=== PATIENT | female | born 1955 | race Caucasian/White ===

== ENCOUNTER 2020-05-22 10:35 | Inpatient (IN) | payer MEDICARE ==
[~2020-05-22] VITALS: Ht 157.5 cm; Wt 71.7 kg
[~2020-05-22 10:35] MED LIST: ALPR0.5T8 PO; DIAZ5TAB4 PO; FLUT1DIS27 IH; FLUT1DIS28 IH; GABA-532 PO; LORA1TAB PO; QUET50TA PO; RANI300T4 PO
--- NOTE | 2020-05-22 10:43 | NUR ---
Patient BIB [facility] from home for c/o SOB. Patient is A/Ox4. Speech is clear, speaks in complete sentences. No acute neuro deficits noted at this time. Respiratory even, symmetrical, but shallow. Patient tolerating room air at 94%. Denies any cp at this time. Deniese any n/v/d or any gu distress. Patient in bed at lowest position,, sr upx2, call light within reach. Fall precautions implemented per protocol.
[2020-05-22] MEDS ORDERED: SWABABLE VALVE TRANSFER SET EA MC ONE (10:55)
[2020-05-22] MEDS ORDERED: IV NORMAL SALINE 250 ML IV ONE (10:56)
[2020-05-22] MEDS ORDERED: IOHEXOL 350 100 ML INFUS..BTL ONE (10:56)
--- NOTE | 2020-05-22 10:58 | NUR ---
Blood sent, and solder technician at bedside for CXR.
[2020-05-22] MEDS ORDERED: OXYC-133 PO (11:13)
[2020-05-22] MEDS ORDERED: ACET-2154 PO (11:13)
[2020-05-22] MEDS ORDERED: HYDROMORPHONE 1 MG/1 ML DISP.SYRIN ONE ×2 (11:13→12:11)
[2020-05-22] MEDS ORDERED: HYDROMORPHONE 1 MG/1 ML DISP.SYRIN IV ONE ×2 (11:15→12:15)
[2020-05-22] MEDS ORDERED: IV NORMAL SALINE 500 ML BAG IV ONE (11:15)
[2020-05-22 11:18] LABS: CREATININE 0.9 mg/dL (0.6-1.3); POTASSIUM 3.9 mmol/L (3.5-5.1)
[2020-05-22 11:26] LABS: BASOPHILS # (AUTO) 0.1 K/uL (0.0-8.0); BASOPHILS % (AUTO) 0.7 % (0.0-2.0); EOSINOPHILS % (AUTO) 0.3 % (0.0-7.0); HEMATOCRIT 40.1 % (31.2-41.9); HEMOGLOBIN 13.1 g/dL (10.9-14.3); LYMPHOCYTES # (AUTO) 1.1 K/uL (20.0-40.0); LYMPHOCYTES % (AUTO) 10.4 % (20.5-51.5); MEAN CORPUSCULAR HEMOGLOBIN 28.6 uug (24.7-32.8); MEAN CORPUSCULAR HGB CONC 33 g/dL (32.3-35.6); MEAN CORPUSCULAR VOLUME 87.5 fL (75.5-95.3); MONOCYTES % (AUTO) 9.1 % (0.0-11.0); NEUTROPHILS # (AUTO) 8.4 K/uL (1.8-8.9); NEUTROPHILS % (AUTO) 79.5 % (38.5-71.5); PLATELET COUNT (AUTO) 394 K/uL (179-408); RED BLOOD CELL COUNT(AUTO) 4.59 MIL/uL (3.63-4.92); WHITE BLOOD COUNT (AUTO) 10.5 K/uL (3.8-11.8)
[2020-05-22] MEDS ORDERED: PIPERACILLIN/TAZOBACTAM/D5W 50 ML IV ONE (11:29)
[2020-05-22] MEDS ORDERED: VANCOMYCIN IV 200 ML ONE (11:29)
[2020-05-22] MEDS ORDERED: VANCOMYCIN IV 1,000 MG in IV DEXTROSE 5% 250 ML IV ONE (11:30)
[2020-05-22] MEDS ORDERED: PIPERACILLIN SODIUM/TAZOBACTAM 3.375 G in IV DEXTROSE 5% 50 ML IV ONE (11:30)
[2020-05-22 11:32] LABS: BILIRUBIN,TOTAL 0.5 mg/dL (0.2-1.0); TOTAL PROTEIN, SERUM 7.8 g/dL (6.4-8.2)
--- NOTE | 2020-05-22 11:33 | NUR ---
Patient transported to CT in stable condition.
[2020-05-22 12:31] LABS: ABG BASE EXCESS -4.8 mmol/L; ABG HCO3 21.2 mmol/L; ABG PCO2 42.8 mmHg (35.0-45.0); ABG PH 7.313 (7.350-7.450); ABG PO2 102.1 mmHg (75.0-100.0); ABG SITE LEFT RADIAL; ABG TOTAL HEMOGLOBIN 11.6 G/dL (12.0-16.0); MetHb 0.1 % (0.0-1.5); VENT MODE Nasal Cannula
--- NOTE | 2020-05-22 13:23 | NUR ---
Dr. Jacinto speaking with Dr. Deleon
[2020-05-22] MEDS ORDERED: LEVO50TA8 (13:38)
--- NOTE | 2020-05-22 13:39 | NUR ---
Report given to NATHEN Goldstein
--- NOTE | 2020-05-22 13:58 | NUR ---
Patient transported to TELE in stable condition.
[2020-05-22] MEDS ORDERED: Z GUARD REMEDY PASTE 57 GM TUBE TOP PRN (14:00)
[2020-05-22] MEDS ORDERED: MAGNESIUM HYDROXIDE 30 ML LIQUID UDC PO PRN (14:00)
[2020-05-22] MEDS ORDERED: FLUTICASONE/SALMETEROL 250/50 INHALER IH PRN (14:00)
[2020-05-22] MEDS ORDERED: ONDANSETRON 4 MG/2 ML VIAL IV PRN (14:00)
[2020-05-22] MEDS ORDERED: ACETAMINOPHEN 325 MG TABLET PO PRN (14:00)
[2020-05-22] MEDS ORDERED: ZOLPIDEM 5 MG TABLET PO PRN (14:00)
--- NOTE | 2020-05-22 14:03 | NUR ---
RECEIVED PATIENT FOR ADMISSION 65 YEARS OLD FEMALE BY MILLI TO ROOM 316 PLACED INTO BED FIXED AND MADE COMFORTABLE PATIENTY IS ALERT AND ORIENTED BUT WEAK ASSISTED WITH ANSWERING THE ADMISSION QUESTIONS ON O2 AT 2L/M BY NASAL CANULA WITH SOME SOBE WITH SATS AT 95 PERCENT VANCOMICIN IS INFUSING FROM EMERGENCY ROOM TO HER LEFT AC WITH NO S/S OF INFILTERATION ON SITE.OCCASSIONAL COUGH STATED UNABLE TO SPIT UP ORIENTED TO ROOM AND FACILITY PROTOCOL MADE COMFORTABLE WILL CONTINUE TO OBSERVE.
--- NOTE | 2020-05-22 14:30 | NUR ---
ABBIE WAS HERE FOR THE THORACENTHESIS BUT PATIENT WAS NOT READY SO SHE IS READY NOW SO I CALLED HIM AND SPOKE WITH HIM STATED WILL BE HERE SOON CONSCENT OBTAINED FROM THE PATIENT AND DOCUMENTED.
--- NOTE | 2020-05-22 14:35 | NUR ---
CALL RECEIVED FROM DR BRITO STATED TO START LOVENOX TOMORROW IF PATIENT WILL GET THORACENTHESIS TODAY PHARMACY NOTIFIED.
--- NOTE | 2020-05-22 14:44 | NUR ---
NATHEN Goldstein called to confirm consent signed and pt will be ready for thora at 15:15. Messaged DR Momin regarding thoracentesis. Waiting for reply.
[2020-05-22 14:57] VITALS: BP 140/85
[2020-05-22] MEDS ORDERED: ENOXAPARIN SODIUM 80 MG/0.8 ML DISP.SYRIN SQ SCH (16:00)
--- NOTE | 2020-05-22 16:30 | NUR ---
RIGHT LUNG THORACENTHESIS DONE AT THE BEDSIDE ORDERED AND 4000 ML REMOVED LIGHT BLOODY FLUID ALL SPECIMEN SENT TO THE LAB CXR DONE TO CONFIRM NO PNEUMOTHORAX PATIENT MADE COMFORTABLE STATED FEELING SOMEWHAT BETTER AT THIS TIME
[2020-05-22] MEDS: ALPRAZOLAM 0.5 MG TABLET PO SCH (16:37)
[2020-05-22] MEDS: OXYCODONE/APAP 5-325 MG TABLET PO PRN ×2 (16:39→21:00)
--- NOTE | 2020-05-22 17:18 | NUR ---
DR ESPOSITO HERE TO SEE PATIENT WITH NEW ORDERS FOR CYTOLOGY AND OTHER OTHERS FROM THE THORACENTHESIS FLUID.
[2020-05-22] MEDS ORDERED: ALBUTEROL SULFATE 8 GM HFA.AER.AD IH PRN (17:30)
[2020-05-22 20:05] VITALS: BP 138/84
[2020-05-22] MEDS: QUETIAPINE FUMARATE 100 MG TABLET PO SCH (21:00)
[2020-05-22] MEDS ORDERED: Medication Not On Formulary EA (Quetiapine Fumarate (Seroquel) 150 MG) PO SCH (21:00)
[2020-05-22] MEDS: GABAPENTIN 100 MG CAPSULE PO SCH (21:00)
--- NOTE | 2020-05-22 21:18 | NUR ---
patient received lying in bed ready to go to sleep. a/o x2-3. no s/s of acute distress. v/s stable. all medications administered. c/o of pain. percocet administered. safety precautions in placed. bed in lowest position, side rails up x2, bed alarm on. sinus tachycardia on tele monitor. on NC 2L. will continue to monitor and assess.
[2020-05-23] VITALS: BP 130/64
[2020-05-23] MEDS: OXYCODONE/APAP 5-325 MG TABLET PO PRN ×2 (03:30→20:19)
[2020-05-23 04:05] VITALS: BP 90/59
--- NOTE | 2020-05-23 05:09 | NUR ---
patient slept intermittently. no s/s of acute distress. v/s stable. NC 2L sat at 98%. PIV intact and patent. safety measures in place. fall precautions provided. will continue to monitor and assess.
[2020-05-23] MEDS: LEVOTHYROXINE SODIUM 50 MCG TABLET PO SCH (06:02)
[2020-05-23 06:32] VITALS: BP 104/69
[2020-05-23 06:49] LABS: BASOPHILS # (AUTO) 0.1 K/uL (0.0-8.0); BASOPHILS % (AUTO) 0.7 % (0.0-2.0); EOSINOPHILS # (AUTO) 0.1 K/uL (0.0-0.7); EOSINOPHILS % (AUTO) 1.2 % (0.0-7.0); HEMATOCRIT 33.9 % (31.2-41.9); HEMOGLOBIN 11.3 g/dL (10.9-14.3); LYMPHOCYTES # (AUTO) 1.2 K/uL (20.0-40.0); LYMPHOCYTES % (AUTO) 12.1 % (20.5-51.5); MEAN CORPUSCULAR HEMOGLOBIN 29.1 uug (24.7-32.8); MEAN CORPUSCULAR HGB CONC 33 g/dL (32.3-35.6); MEAN CORPUSCULAR VOLUME 87.4 fL (75.5-95.3); MONOCYTES # (AUTO) 1.1 K/uL (2.0-10.0); MONOCYTES % (AUTO) 11.2 % (0.0-11.0); NEUTROPHILS # (AUTO) 7.4 K/uL (1.8-8.9); NEUTROPHILS % (AUTO) 74.8 % (38.5-71.5); PLATELET COUNT (AUTO) 338 K/uL (179-408); RED BLOOD CELL COUNT(AUTO) 3.88 MIL/uL (3.63-4.92); WHITE BLOOD COUNT (AUTO) 9.9 K/uL (3.8-11.8)
[2020-05-23 07:03] LABS: CREATININE 0.8 mg/dL (0.6-1.3); PHOSPHOROUS 2.3 mg/dL (2.5-4.9); POTASSIUM 3.8 mmol/L (3.5-5.1)
[2020-05-23] MEDS: ALPRAZOLAM 0.5 MG TABLET PO SCH ×3 (08:43→17:38)
[2020-05-23] MEDS: ENOXAPARIN SODIUM 80 MG/0.8 ML DISP.SYRIN SQ SCH ×2 (08:44→20:19)
[2020-05-23] MEDS: FLUTICASONE/VILANTEROL 1 EACH BLST.W.DEV INH SCH (08:45)
[2020-05-23] MEDS ORDERED: FLUTICASONE/SALMETEROL 100/50 1 INH DISK.W.DEV IH SCH (09:00)
[2020-05-23] MEDS: HYDROCODONE/APAP 5-325MG TABLET PO PRN ×2 (10:43→15:04)
[2020-05-23] MEDS ORDERED: NEUTRA PHOS PACKET PO ONE (15:45)
[2020-05-23 16:56] LABS: *BLOOD, URINE 1+ (NEGATIVE); *CLARITY,URINE SLIGHTLY CLOUDY (CLEAR); *COLOR,URINE DARK YELLOW (YELLOW); *KETONES,URINE 2+ (NEGATIVE); LEUKOCYTE ESTERASE ,URINE NEGATIVE (NEGATIVE); NITRITE, URINE NEGATIVE (NEGATIVE); UGLUCOSE NEGATIVE (NEGATIVE)
[2020-05-23 16:59] LABS: *BILIRUBIN,URIN 1+ (NEGATIVE)
[2020-05-23 17:53] LABS: BACTERIA,URINE FEW /HPF (NONE SEEN); SQUAMOUS EPITHELIAL CELL,UR FEW /HPF (NONE SEEN)
[2020-05-23 17:54] LABS: RBC,URINE 0-3 /HPF (0-3)
--- NOTE | 2020-05-23 19:16 | NUR ---
PATIENT CALM AND COMFORTABLE THROUGH OUT SHIFT WITH NO SIGNS OF DISTRESS; PATIENT MEDICATION COMPLIANT;REPORT GIVEN TO ONCOMING NURSE.
--- NOTE | 2020-05-23 20:00 | NUR ---
Received patient awake and alert. Patient shows no signs or symptoms of distress at this time. Vital signs stable. Sinus Tach on tele monitor. Denies feeling any shortness of breath at this time. O2 saturation 96% on 2L NC. Complains of having 8/10 pain at this time. Will administer PRN pain medication. Side rails X2 are up. Bed set to lowest position. Call light within reach. Will continue to monitor patient.
[2020-05-23 20:09] VITALS: BP 112/57
[2020-05-23] MEDS: GABAPENTIN 100 MG CAPSULE PO SCH (20:19)
[2020-05-23] MEDS: QUETIAPINE FUMARATE 100 MG TABLET PO SCH (20:19)
--- NOTE | 2020-05-23 22:57 | NUR ---
Pt accidentally removed previous IV in left AC. New IV 22g placed on right hand. Patient shows no signs or symptoms of distress. Will continue to monitor patient.
[2020-05-24 00:05] VITALS: BP 105/60
[2020-05-24 04:09] VITALS: BP 104/59
[2020-05-24 06:39] LABS: BASOPHILS # (AUTO) 0.1 K/uL (0.0-8.0); BASOPHILS % (AUTO) 0.6 % (0.0-2.0); EOSINOPHILS # (AUTO) 0.1 K/uL (0.0-0.7); EOSINOPHILS % (AUTO) 0.7 % (0.0-7.0); HEMOGLOBIN 11.6 g/dL (10.9-14.3); LYMPHOCYTES # (AUTO) 0.9 K/uL (20.0-40.0); LYMPHOCYTES % (AUTO) 8.9 % (20.5-51.5); MEAN CORPUSCULAR HEMOGLOBIN 28.9 uug (24.7-32.8); MEAN CORPUSCULAR HGB CONC 33 g/dL (32.3-35.6); MEAN CORPUSCULAR VOLUME 87.1 fL (75.5-95.3); MONOCYTES % (AUTO) 9.3 % (0.0-11.0); NEUTROPHILS # (AUTO) 8.2 K/uL (1.8-8.9); NEUTROPHILS % (AUTO) 80.5 % (38.5-71.5); PLATELET COUNT (AUTO) 376 K/uL (179-408); RED BLOOD CELL COUNT(AUTO) 4.02 MIL/uL (3.63-4.92); WHITE BLOOD COUNT (AUTO) 10.2 K/uL (3.8-11.8)
[2020-05-24] MEDS: LEVOTHYROXINE SODIUM 50 MCG TABLET PO SCH (06:43)
--- NOTE | 2020-05-24 06:47 | NUR ---
Patient shows no signs or symptoms of distress at this time. Vital signs stable. ST on tele monitor. Patient to be endorsed to day shift nurse in stable condition.
[2020-05-24 06:51] LABS: CREATININE 0.8 mg/dL (0.6-1.3); PHOSPHOROUS 3.5 mg/dL (2.5-4.9); POTASSIUM 3.7 mmol/L (3.5-5.1)
--- NOTE | 2020-05-24 07:30 | NUR ---
Received pt in bed AOx4, stating she's feeling anxious. On RA, deep breathing noted, per patient d/t anxiety because of Hospice decision. Will give Xanax. DC plan for home with hospice. Dr. Ruiz ordered to DC Lovenox and order Eliquis 10mg PO. Bed locked in lowest position with siderails 2x up. Call light and belongings within reach.
[2020-05-24] MEDS ORDERED: APIX5TAB PO (07:38)
[2020-05-24 08:00] VITALS: BP 99/72
[2020-05-24] MEDS: ALPRAZOLAM 0.5 MG TABLET PO SCH (08:27)
[2020-05-24] MEDS: FLUTICASONE/VILANTEROL 1 EACH BLST.W.DEV INH SCH (08:29)
[2020-05-24] MEDS ORDERED: APIXABAN 5 MG TABLET PO ONE (08:30)
--- NOTE | 2020-05-24 09:20 | NUR ---
Pt left unit via wheelchair accompanied by nurse. DC forms and instructions signed and given, verbalized understanding. Pain med prescription also given to patient. Belongings list signed and all accounted for. IV on right hand and ID band removed. Hospice referrals given to patient as discussed by Dr. Ruiz. Pt picked up by via private car.
== END 2020-05-24 09:20 | disposition hospice, home (50) | DRG 175 ==
LOC: ER 10:35 → TELE3 13:37
PROVIDERS: ADMIT Family Medicine; ATTEND Family Medicine
PROC: 0W993ZZ Drainage of Right Pleural Cavity, Percutaneous Approach (ICD-10-PCS; principal; 2020-05-23)
DX: I26.99 Other pulmonary embolism without acute cor pulmonale (principal); J96.01 Acute respiratory failure with hypoxia; N17.0 Acute kidney failure with tubular necrosis; J91.0 Malignant pleural effusion; D68.69 Other thrombophilia; C78.2 Secondary malignant neoplasm of pleura; J98.19 Other pulmonary collapse; J98.11 Atelectasis; E44.0 Moderate protein-calorie malnutrition; C34.91 Malignant neoplasm of unspecified part of right bronchus or lung; R64 Cachexia; E03.9 Hypothyroidism, unspecified; E88.81 Metabolic syndrome and other insulin resistance; F17.210 Nicotine dependence, cigarettes, uncomplicated; Z92.21 Personal history of antineoplastic chemotherapy; Z92.3 Personal history of irradiation; J44.9 Chronic obstructive pulmonary disease, unspecified; E88.09 Other disorders of plasma-protein metabolism, not elsewhere classified; R73.9 Hyperglycemia, unspecified; E27.8 Other specified disorders of adrenal gland; E87.70 Fluid overload, unspecified; Z68.28 Body mass index [BMI] 28.0-28.9, adult
CPT/HCPCS: 32555; 36415; 36600; 70030-TC; 71045; 71275; 72125; 83605; 83735; 84100; 85025; 85730; 87040; 87070; 87205; 93005; A4663; G0378; J1170; J1650; J2543; J3370; J3535; J7040; J7050; Q9967; U0003-CS

== ENCOUNTER 2020-05-25 19:48 | Inpatient (IN) | payer MEDICARE ==
[~2020-05-25] VITALS: Ht 162.6 cm; Wt 69.9 kg
[~2020-05-25 19:48] MED LIST changes: +ACET-2154 PO; +APIX5TAB PO; -DIAZ5TAB4 PO; +ETOMIDATE 20 MG/10 ML VIAL IV ONE; +LEVO50TA8; -LORA1TAB PO; +OXYC-133 PO; -RANI300T4 PO; +SUCCINYLCHOLINE CHLORIDE 200 MG/10 ML VIAL IV ONE
--- NOTE | 2020-05-25 20:00 | NUR ---
Dr. Quinn at bedside for MSE.
--- NOTE | 2020-05-25 20:30 | NUR ---
Per patient's , patient has been abusing her percocet, took 7 tablets since last night. Patient's psychiatrist very concerned about her condition, Dr. Simpson, . Patient's oncologist is Dr. Sterling from the [facility] . made aware.
[2020-05-25 20:34] LABS: BASOPHILS # (AUTO) 0.1 K/uL (0.0-8.0); BASOPHILS % (AUTO) 0.2 % (0.0-2.0); HEMATOCRIT 34.8 % (31.2-41.9); HEMOGLOBIN 11.3 g/dL (10.9-14.3); LYMPHOCYTES # (AUTO) 1.2 K/uL (20.0-40.0); LYMPHOCYTES % (AUTO) 5.6 % (20.5-51.5); MEAN CORPUSCULAR HEMOGLOBIN 28.1 uug (24.7-32.8); MEAN CORPUSCULAR HGB CONC 33 g/dL (32.3-35.6); MEAN CORPUSCULAR VOLUME 86.2 fL (75.5-95.3); MONOCYTES % (AUTO) 9.1 % (0.0-11.0); NEUTROPHILS # (AUTO) 18.5 K/uL (1.8-8.9); NEUTROPHILS % (AUTO) 85.1 % (38.5-71.5); PLATELET COUNT (AUTO) 495 K/uL (179-408); RED BLOOD CELL COUNT(AUTO) 4.04 MIL/uL (3.63-4.92); WHITE BLOOD COUNT (AUTO) 21.8 K/uL (3.8-11.8)
--- NOTE | 2020-05-25 20:35 | NUR ---
Pt states she tested negative for covid 19 test 3-4 days ago.
[2020-05-25 20:40] LABS: ABG BASE EXCESS 3.6 mmol/L; ABG HCO3 27.4 mmol/L; ABG PCO2 38.1 mmHg (35.0-45.0); ABG PH 7.474 (7.350-7.450); ABG PO2 106.1 mmHg (75.0-100.0); ABG SITE LEFT RADIAL; ABG TOTAL HEMOGLOBIN 11.7 G/dL (12.0-16.0); COHb 1.1 % (0.5-1.5); MetHb 0.1 % (0.0-1.5); O2Hb 97.3 % (94.0-97.0); VENT MODE Nasal Cannula
[2020-05-25] MEDS ORDERED: ALBUTEROL SULFATE 2.5 MG/3 ML NEBU ONE ×2 (20:45→23:46)
[2020-05-25] MEDS ORDERED: IPRATROPIUM BROMIDE 0.5 MG/2.5 ML NEBU ONE ×2 (20:46→23:47)
[2020-05-25] MEDS ORDERED: ALPRAZOLAM 0.5 MG TABLET ONE (20:57)
[2020-05-25] MEDS ORDERED: ALBUTEROL SULFATE 2.5 MG/3 ML NEBU NEB ONE ×2 (21:00→23:45)
[2020-05-25] MEDS ORDERED: ALPRAZOLAM 0.25 MG TABLET PO ONE (21:00)
[2020-05-25] MEDS ORDERED: IPRATROPIUM BROMIDE 0.5 MG/2.5 ML NEBU NEB ONE ×2 (21:00→23:45)
[2020-05-25 21:02] LABS: BILIRUBIN,DIRECT 0.2 mg/dL (0.0-0.2); BILIRUBIN,TOTAL 0.6 mg/dL (0.2-1.0); CREATININE 0.8 mg/dL (0.6-1.3); POTASSIUM 3.6 mmol/L (3.5-5.1); TOTAL PROTEIN, SERUM 7.3 g/dL (6.4-8.2)
[2020-05-25] MEDS ORDERED: ACETAMINOPHEN ES 500 MG TABLET ONE (21:18)
[2020-05-25] MEDS ORDERED: AZITHROMYCIN IV 500 MG in IV DEXTROSE 5% 250 ML IV ONE (21:30)
[2020-05-25] MEDS ORDERED: CEFTRIAXONE 1 G in IV DEXTROSE 5% 50 ML IV ONE (21:30)
[2020-05-25] MEDS ORDERED: ACETAMINOPHEN ES 500 MG TABLET PO ONE (21:30)
[2020-05-25] MEDS ORDERED: AZITHROMYCIN 500MG/ D5W 250ML IVPB **ER PYXIS ONLY IV ONE (21:35)
[2020-05-25] MEDS ORDERED: CEFTRIAXONE /D5W 50ML IVPB **ER PYXIS IV ONE (21:35)
[2020-05-25] MEDS ORDERED: KETAMINE HCL 500 MG/10 ML INJ IV ONE (22:15)
[2020-05-25] MEDS ORDERED: KETAMINE HCL 500 MG/10 ML INJ ONE (22:18)
--- NOTE | 2020-05-25 22:20 | NUR ---
Called [facility] to joellen Carrillo NP.
[2020-05-25] MEDS ORDERED: IV NS 1000 ML 1,000 ML IV ONE (22:30)
--- NOTE | 2020-05-25 22:30 | NUR ---
Patient accepted by Den Carrillo YARDAGE CALLER for admission to [facility], diagnosis: pneumonia. Den Carrillo YARDAGE CALLER at bedside for MSE.
[2020-05-25] MEDS ORDERED: ACETAMINOPHEN 325 MG TABLET PO PRN (23:15)
[2020-05-25] MEDS ORDERED: MAGNESIUM HYDROXIDE 30 ML LIQUID UDC PO PRN (23:15)
[2020-05-25] MEDS ORDERED: ALBUTEROL SULFATE 8 GM HFA.AER.AD IH PRN (23:15)
[2020-05-25] MEDS ORDERED: ONDANSETRON 4 MG/2 ML VIAL IV PRN (23:15)
[2020-05-25] MEDS ORDERED: Z GUARD REMEDY PASTE 57 GM TUBE TOP PRN (23:15)
--- NOTE | 2020-05-25 23:55 | NUR ---
Dr. Quinn speaking with patient's , patient is not DNR and is full code and ok to intubate. POL not in chart.
[2020-05-26] VITALS (34 sets, daily range): BP systolic 12–134; BP diastolic 50–106
[2020-05-26] MEDS ORDERED: PIPERACILLIN SODIUM/TAZOBACTAM 3.375 G in IV DEXTROSE 5% 50 ML IV SCH ×2
[2020-05-26] MEDS ORDERED: NOREPINEPHRINE BITARTRATE 4 MG/4 ML VIAL IV ONE ×2 (00:14→00:19)
[2020-05-26] MEDS ORDERED: NOREPINEPHRINE BITARTRATE 8 MG in IV NORMAL SALINE 242 ML IV PRN (00:15)
[2020-05-26] MEDS ORDERED: IV NS 1000 ML 1,000 ML IV ONE ×2 (00:30→01:15)
--- NOTE | 2020-05-26 00:57 | NUR ---
Etomidate 20mg given IV to right forearm 20G
--- NOTE | 2020-05-26 00:58 | NUR ---
Succinylcholine 100 mg IV given IV right forearm 20G
--- NOTE | 2020-05-26 01:01 | NUR ---
Patient intubated by Dr. Quinn.
--- NOTE | 2020-05-26 01:05 | NUR ---
Pt intubated at this time by ER with vent setting of AC 16, VT 450, 100% FiO2. ET 7.0 and 23cm at the lip. vent alarm on and audible. BMV at bedside. will cont to monitor pt.
[2020-05-26] MEDS ORDERED: PROPOFOL 100 ML ONE (01:08)
--- NOTE | 2020-05-26 01:15 | NUR ---
Xray at bedside to verify ET tube placement.
[2020-05-26 01:17] LABS: *BLOOD, URINE 3+ (NEGATIVE); *COLOR,URINE RED (YELLOW); *KETONES,URINE NEGATIVE (NEGATIVE); *UROBILINOGEN,URINE 0.2 E.U./dl (NORMAL); LEUKOCYTE ESTERASE ,URINE TRACE (NEGATIVE); NITRITE, URINE NEGATIVE (NEGATIVE); PH,URINE 8.5 (5.0-8.0); UGLUCOSE TRACE (NEGATIVE)
[2020-05-26 01:23] LABS: *BILIRUBIN,URIN 2+ (NEGATIVE)
[2020-05-26 01:37] LABS: BACTERIA,URINE MODERATE /HPF (NONE SEEN); RBC,URINE 20-50 /HPF (0-3); WBC,URINE 80-100 /HPF (0-3)
[2020-05-26 01:38] LABS: SQUAMOUS EPITHELIAL CELL,UR MANY /HPF (NONE SEEN); TRICHOMONAS,URINE MANY /HPF (NONE SEEN)
[2020-05-26] MEDS: PROPOFOL 100 ML IV PRN ×4 (01:45→18:39)
--- NOTE | 2020-05-26 02:09 | NUR ---
Called [facility] to page Dr. Rambo Tariq. Dr. Quinn on panel call with Dr. Tariq.
[2020-05-26 02:23] LABS: ABG BASE EXCESS -1.1 mmol/L; ABG HCO3 23.6 mmol/L; ABG PCO2 39.5 mmHg (35.0-45.0); ABG PH 7.394 (7.350-7.450); ABG PO2 398.7 mmHg (75.0-100.0); ABG SITE RIGHT RADIAL; ABG TOTAL HEMOGLOBIN 10.6 G/dL (12.0-16.0); COHb 0.4 % (0.5-1.5); MetHb 0.2 % (0.0-1.5); O2Hb 99.1 % (94.0-97.0); VENT MODE VENT - A/C; VT, ABG 450 mL
[2020-05-26] MEDS ORDERED: ETOMIDATE 20 MG/10 ML VIAL IV ONE (03:15)
[2020-05-26] MEDS ORDERED: SUCCINYLCHOLINE CHLORIDE 200 MG/10 ML VIAL IV ONE (03:15)
--- NOTE | 2020-05-26 03:17 | NUR ---
Report given to Yara SENA CCU.
[2020-05-26] MEDS ORDERED: PIPERACILLIN SODIUM/TAZOBACTAM 3.375 G in IV DEXTROSE 5% 50 ML IV ONE (03:45)
[2020-05-26] MEDS ORDERED: ENOXAPARIN SODIUM 80 MG/0.8 ML DISP.SYRIN SQ SCH ×2 (03:45→18:00)
[2020-05-26 04:05] LABS: *BLOOD, URINE 2+ (NEGATIVE); *CLARITY,URINE CLEAR (CLEAR); *COLOR,URINE DARK YELLOW (YELLOW); *KETONES,URINE NEGATIVE (NEGATIVE); LEUKOCYTE ESTERASE ,URINE NEGATIVE (NEGATIVE); NITRITE, URINE NEGATIVE (NEGATIVE); UGLUCOSE NEGATIVE (NEGATIVE)
[2020-05-26 04:11] LABS: *BILIRUBIN,URIN 1+ (NEGATIVE)
[2020-05-26 04:19] LABS: BACTERIA,URINE FEW /HPF (NONE SEEN); RED BLOOD CELL CASTS,URINE 0-3 /LPF (NONE SEEN); SQUAMOUS EPITHELIAL CELL,UR FEW /HPF (NONE SEEN)
[2020-05-26 04:22] LABS: *CLARITY,URINE CLOUDY (CLEAR)
[2020-05-26] MEDS: IV 1/2NS 1000 ML 1,000 ML IV PRN ×2 (05:09→23:48)
[2020-05-26] MEDS ORDERED: PIPERACILLIN/TAZOBACTAM/D5W 50 ML IV ONE (05:32)
[2020-05-26 05:53] LABS: BASOPHILS % (AUTO) 0.1 % (0.0-2.0); EOSINOPHILS % (AUTO) 0.1 % (0.0-7.0); HEMATOCRIT 32.4 % (31.2-41.9); HEMOGLOBIN 10.6 g/dL (10.9-14.3); LYMPHOCYTES # (AUTO) 2.2 K/uL (20.0-40.0); LYMPHOCYTES % (AUTO) 8.2 % (20.5-51.5); MEAN CORPUSCULAR HEMOGLOBIN 28.3 uug (24.7-32.8); MEAN CORPUSCULAR HGB CONC 33 g/dL (32.3-35.6); MEAN CORPUSCULAR VOLUME 86.7 fL (75.5-95.3); MONOCYTES # (AUTO) 2.5 K/uL (2.0-10.0); MONOCYTES % (AUTO) 9.2 % (0.0-11.0); NEUTROPHILS # (AUTO) 22.6 K/uL (1.8-8.9); NEUTROPHILS % (AUTO) 82.4 % (38.5-71.5); PLATELET COUNT (AUTO) 547 K/uL (179-408); RED BLOOD CELL COUNT(AUTO) 3.74 MIL/uL (3.63-4.92); WHITE BLOOD COUNT (AUTO) 27.4 K/uL (3.8-11.8)
[2020-05-26 06:01] LABS: BILIRUBIN,TOTAL 0.5 mg/dL (0.2-1.0); CREATININE 0.7 mg/dL (0.6-1.3); POTASSIUM 3.6 mmol/L (3.5-5.1); TOTAL PROTEIN, SERUM 6.4 g/dL (6.4-8.2)
[2020-05-26 06:15] LABS: BASOPHILS % (MANUAL) 1 % (0-2); LYMPHOCYTES % (MANUAL) 9 % (20-40); METAMYELOCYTES % 2 % (0-1); MONOCYTES % (MANUAL) 6 % (2-10); NEUTROPHILS % (MANUAL) 82 % (42-75)
--- NOTE | 2020-05-26 06:36 | NUR ---
BLOOD GAS BEING MONITORED , AND BEING ADJUSTED WHEN APPLICABLE , CURRENTLY ON VENT SETTINGS OF AC 16 TV 450 FIO2 40 % Addendum: 05/26/20 at 0636 by RASHEL ORTIZ RN Amended: Links added. Addendum: 05/26/20 at 0637 by RASHEL ORTIZ RN Amended: Links added.
--- NOTE | 2020-05-26 06:37 | NUR ---
BLOOD CULTURE WERE DRAWN , ON ANTIBIOTICS OF ZOSYN Addendum: 05/26/20 at 0637 by RASHEL ORTIZ RN Amended: Links added.
--- NOTE | 2020-05-26 06:38 | NUR ---
SUCTION WHEN NECESSARY AND LOC BEING MONITORED WHILE ON DIPRIVAN Addendum: 05/26/20 at 0638 by RASHEL ORTIZ RN Amended: Links added.
--- NOTE | 2020-05-26 06:39 | NUR ---
VITAL SIGN BEING MONITORED AND LOC IS BEING CHECKED Addendum: 05/26/20 at 0639 by RASHEL ORTIZ RN Amended: Links added.
--- NOTE | 2020-05-26 07:08 | NUR ---
DR ELISE WAS CALLED FOR SUSTAINING HEART RATE > 130 , WAITING FOR CALL BACK , LEVOPHED WAS HELD ,SYSTOLIC BLOOD PRESSURE IS MAINTAINED > 100 , DIPRIVAN AT 35 MCG , IV 1/2 NS 75 ML
[2020-05-26] MEDS ORDERED: OXYCODONE/APAP 5-325 MG TABLET PO PRN (07:15)
[2020-05-26] MEDS ORDERED: LEVOTHYROXINE SODIUM 50 MCG TABLET PO SCH (07:30)
--- NOTE | 2020-05-26 08:00 | NUR ---
Dr. Castillo and SHARONA Valencia here to see pt. Full report given. New orders received.
--- NOTE | 2020-05-26 08:45 | NUR ---
Telephone consent for right sided guided thoracentesis signed by Bandar (). fully alert and oriented during our conversation and aware of the procedures to be done.
[2020-05-26] MEDS ORDERED: ALPRAZOLAM 0.5 MG TABLET PO SCH (09:00)
[2020-05-26] MEDS ORDERED: FLUTICASONE/SALMETEROL 100/50 1 INH DISK.W.DEV INH SCH (09:00)
--- NOTE | 2020-05-26 10:10 | NUR ---
US tech here to see pt.
[2020-05-26] MEDS ORDERED: OXYCODONE/APAP 5-325 MG TABLET NG PRN (10:43)
[2020-05-26] MEDS ORDERED: MAGNESIUM HYDROXIDE 30 ML LIQUID UDC NG PRN (10:43)
--- NOTE | 2020-05-26 11:22 | NUR ---
Dr. Deleon here to see pt. Full report given. New orders received.
[2020-05-26] MEDS: FLUTICASONE/VILANTEROL 1 EACH BLST.W.DEV INH SCH ×2 (12:00→13:02)
[2020-05-26] MEDS ORDERED: ALPRAZOLAM 0.5 MG TABLET NG SCH (13:00)
[2020-05-26] MEDS ORDERED: ALPRAZOLAM 0.5 MG TABLET NG PRN (13:00)
--- NOTE | 2020-05-26 13:00 | NUR ---
Pt unable to take fluticasone breathing inhaler at this time. Pt intubated. Pharmacy made aware and to discontinue.
[2020-05-26] MEDS: PIPERACILLIN SODIUM/TAZOBACTAM 3.375 G in IV DEXTROSE 5% 50 ML IV SCH ×2 (13:02→21:07)
--- NOTE | 2020-05-26 14:00 | NUR ---
Dr. Mendez here to see pt. Full report given. No new orders received. spoke with Bandar (son) on the telephone. No surgical intervention needed at this time. Addendum: 05/26/20 at 1433 by PRETTY PINA RN Dr. Garsia* not Dr. Mendez
--- NOTE | 2020-05-26 14:05 | NUR ---
Dr. Espinal here to see pt. Full report given. New orders received. okay with tachycardia HR 128's no intervention needed at this time to correct HR.
--- NOTE | 2020-05-26 14:25 | NUR ---
US tech here to see pt for 2D Echocardiogram.
--- NOTE | 2020-05-26 14:43 | NUR ---
Spoke with Dr. Gipson on the telephone. Full report given. New orders received.
--- NOTE | 2020-05-26 17:30 | NUR ---
and daughter here to see pt. Instructed them with PPE equipment and hygiene practice. and daughter verbalized understanding.
--- NOTE | 2020-05-26 18:00 | NUR ---
Sons here to see pt. Instructed them with PPE equipment and hygiene practice and they verbalized understanding.
--- NOTE | 2020-05-26 18:15 | NUR ---
PATIENT ACCOUNTING REPRESENTATIVE Erik spoke with on the telephone. Sons to decide when to initiate comfort care measures per PATIENT ACCOUNTING REPRESENTATIVE.
[2020-05-26] MEDS: ENOXAPARIN SODIUM 80 MG/0.8 ML DISP.SYRIN SQ SCH (18:31)
--- NOTE | 2020-05-26 19:15 | NUR ---
received patient on sedated , diprivan at 35 mcg , vent settings at ac 16 , tv 450 , 35 fio2% iv of 1/2 ns at 75 ml running at rac and right hand respectively , armando intact , angi cath patent , but no blood rturn ,
--- NOTE | 2020-05-26 19:55 | NUR ---
titrate FiO2 down to 30%.
[2020-05-26] MEDS ORDERED: GABAPENTIN 100 MG CAPSULE PO SCH (21:00)
[2020-05-26] MEDS: QUETIAPINE FUMARATE 100 MG TABLET NG SCH (21:00)
[2020-05-26] MEDS: GABAPENTIN 100 MG CAPSULE NG SCH (21:00)
--- NOTE | 2020-05-26 21:00 | NUR ---
NGT CLAMPED AND PATENT , NO RESIDUAL , SARAY CATH PATENT, BLOOD RETURN PRESENT
--- NOTE | 2020-05-26 22:24 | NUR ---
SYSTOLIC BLOOD PRESSURE IS MAINTAINED , LEVOPHED IS ON STANDBY , WILL BE ABLE TO MAINTAIN WITHOUT STARTTING THE LEVOPHED Addendum: 05/26/20 at 2224 by RASHEL ORTIZ RN Amended: Links added.
--- NOTE | 2020-05-26 22:26 | NUR ---
LAB LEVELS IS BEING MONITORED AND CURENTLY ON ANTIBIOTICS OF ZOSYN Addendum: 05/26/20 at 2226 by RASHEL ORTIZ RN Amended: Links added.
--- NOTE | 2020-05-26 22:28 | NUR ---
VENT SETTINGS IS BEING TITRATED ACCORDING TO PATIENT'S NEEDS CURENTLY FIO2 WAS DCREASED TO 30 % , ABG AND CXR DAILY Addendum: 05/26/20 at 2228 by RASHEL ORTIZ RN Amended: Links added.
[2020-05-27] VITALS (27 sets, daily range): BP systolic 82–135; BP diastolic 50–75
[2020-05-27] MEDS: PROPOFOL 100 ML IV PRN ×4 (02:19→20:24)
[2020-05-27 05:33] LABS: BASOPHILS # (AUTO) 0.1 K/uL (0.0-8.0); BASOPHILS % (AUTO) 0.7 % (0.0-2.0); HEMATOCRIT 28.6 % (31.2-41.9); HEMOGLOBIN 9.5 g/dL (10.9-14.3); LYMPHOCYTES # (AUTO) 1.4 K/uL (20.0-40.0); LYMPHOCYTES % (AUTO) 7.5 % (20.5-51.5); MEAN CORPUSCULAR HEMOGLOBIN 28.9 uug (24.7-32.8); MEAN CORPUSCULAR HGB CONC 33 g/dL (32.3-35.6); MEAN CORPUSCULAR VOLUME 87.2 fL (75.5-95.3); MONOCYTES # (AUTO) 1.5 K/uL (2.0-10.0); MONOCYTES % (AUTO) 7.6 % (0.0-11.0); NEUTROPHILS # (AUTO) 16.2 K/uL (1.8-8.9); NEUTROPHILS % (AUTO) 84.2 % (38.5-71.5); PLATELET COUNT (AUTO) 442 K/uL (179-408); RED BLOOD CELL COUNT(AUTO) 3.28 MIL/uL (3.63-4.92); WHITE BLOOD COUNT (AUTO) 19.2 K/uL (3.8-11.8)
[2020-05-27 05:40] LABS: THYROID STIMULATING HORMONE 0.595 mIU/mL (0.358-3.740)
[2020-05-27 05:41] LABS: CREATININE 0.7 mg/dL (0.6-1.3); PHOSPHOROUS 2.2 mg/dL (2.5-4.9); POTASSIUM 3.5 mmol/L (3.5-5.1)
[2020-05-27] MEDS: PIPERACILLIN SODIUM/TAZOBACTAM 3.375 G in IV DEXTROSE 5% 50 ML IV SCH ×3 (05:44→20:25)
[2020-05-27] MEDS: LEVOTHYROXINE SODIUM 50 MCG TABLET NG SCH (05:45)
[2020-05-27] MEDS: ENOXAPARIN SODIUM 80 MG/0.8 ML DISP.SYRIN SQ SCH ×2 (05:46→17:14)
--- NOTE | 2020-05-27 06:00 | NUR ---
patient is sedated , diprivan running at 30 mcg , iv 1/2 ns 75 ml , vent settings ac 16 tv 450 fio2 30% , ngt clamped , patent , placment checked by aspiration and auscultation , pota cath patent , blood return present , right ac iv intact , and right hand 20 iv , patent
[2020-05-27] MEDS: FLUTICASONE/VILANTEROL 1 EACH BLST.W.DEV INH SCH (07:30)
--- NOTE | 2020-05-27 08:01 | NUR ---
SENIOR SECURITY ARCHITECT Erik here to see pt. Full report given. SENIOR SECURITY ARCHITECT to speak with regarding comfort care measures. Awaiting new orders.
[2020-05-27 08:14] LABS: ABG BASE EXCESS 3.6 mmol/L; ABG HCO3 26.6 mmol/L; ABG PCO2 33.9 mmHg (35.0-45.0); ABG PH 7.512 (7.350-7.450); ABG PO2 67.1 mmHg (75.0-100.0); ABG SITE RIGHT RADIAL; ABG TOTAL HEMOGLOBIN 9.8 G/dL (12.0-16.0); COHb 0.8 % (0.5-1.5); MetHb 0.1 % (0.0-1.5); O2Hb 93.2 % (94.0-97.0); VENT MODE VENT - A/C; VT, ABG 450 mL
--- NOTE | 2020-05-27 09:10 | NUR ---
Dr. Espinal here to see pt. Full report given. No new orders received.
--- NOTE | 2020-05-27 09:54 | NUR ---
Dr. Deleon here to see pt. Full report given. New orders received.
--- NOTE | 2020-05-27 11:36 | NUR ---
Spoke with FLOOR ASSEMBLER Erik. No plans for comfort care yet at this time per . Will resume care as ordered.
--- NOTE | 2020-05-27 11:40 | NUR ---
Pleural fluid cytology report faxed to Dr. Sterling .
[2020-05-27] MEDS: IV 1/2NS 1000 ML 1,000 ML IV PRN (13:19)
--- NOTE | 2020-05-27 15:22 | NUR ---
Spoke with CONTRACT GRAPHIC DESIGNER Dmitriy. Stokes to start tube feeding per dietary recommendations.
[2020-05-27] MEDS ORDERED: OSMOLITE 1.2 CAL 1,000 ML LIQUID GT PRN (15:30)
[2020-05-27] MEDS ORDERED: SODIUM PHOSPHATE MM 15 MMOL in IV NORMAL SALINE 250 ML IV ONE (16:00)
[2020-05-27] MEDS: OSMOLITE 1.2 CAL 1,000 ML LIQUID GT PRN (16:51)
--- NOTE | 2020-05-27 17:15 | NUR ---
Lovenox held in light of moderate oral bleeding during suction.
--- NOTE | 2020-05-27 17:15 | NUR ---
Hebert here at bedside to see ptJohann
--- NOTE | 2020-05-27 18:54 | NUR ---
Spoke with Dr. Gipson on the telephone. Full report given. No new orders received.
--- NOTE | 2020-05-27 19:30 | NUR ---
Report received. Patient admitted 05/25/20 DX: PNA; orally intubated and to mechanical ventilator with settings as follows: AC=16, LW=588 ml, FIO2=30%. Saturations above 94%. Assessment done: Temp=99.3 orally. Had a large green semi soft BM. Bath given. Turned and repositioned. On continuous Propofol drip for sedation via L chest Winter cath. Doesn't open eyes to name calls or pain. Moves arms very weakly at random and withdrawal to pain. Suctioned via ETT for thin white bloody tinged secretions; oral care rendered. Specimen obtained for sputum C/S. Addendum: 05/27/20 at 2139 by TIA GIVENS RN Amended: Links added. Addendum: 05/27/20 at 2139 by TIA GIVENS RN Amended: Links added.
[2020-05-27] MEDS: GABAPENTIN 100 MG CAPSULE NG SCH (20:25)
[2020-05-27] MEDS: QUETIAPINE FUMARATE 100 MG TABLET NG SCH (20:27)
--- NOTE | 2020-05-27 20:30 | NUR ---
NGT feedings Osmolite 1.2 started; with small amounts of coffee ground gastric residuals. HOB elevated above 30 degrees.
--- NOTE | 2020-05-27 21:09 | NUR ---
Spoke to Merlin TABOR re: gastric secretions and BPs in the s; orders received. Addendum: 05/27/20 at 213 by TIA GIVENS RN Amended: Links added. Addendum: 05/27/20 at 2139 by TIA GIVENS RN Amended: Links added. Addendum: 05/27/20 at 2139 by TIA GIVENS RN Amended: Links added.
[2020-05-27] MEDS ORDERED: NOREPINEPHRINE BITARTRATE 8 MG in IV NORMAL SALINE 242 ML IV PRN (21:15)
[2020-05-27] MEDS: PANTOPRAZOLE SODIUM 40 MG VIAL IV SCH (21:27)
[2020-05-27] MEDS: ACETAMINOPHEN 650 MG/20.3 ML LIQUID UDC NG PRN (22:09)
[2020-05-27] MEDS ORDERED: PHENYLEPHRINE IV 100 MG in IV NORMAL SALINE 240 ML IV PRN (23:15)
--- NOTE | 2020-05-27 23:19 | NUR ---
BPs 80s systole; Merlin INSIDE CONTRACTOR SALES informed of BP and HR. Order received. Will monitor BPs for now. Diprivan drip titrated down to 30 mcg/kg/min.
--- NOTE | 2020-05-27 23:30 | NUR ---
Another IV access inserted to KATLYN with #20 angiocath.
[2020-05-28] VITALS (95 sets, daily range): BP systolic 79–139; BP diastolic 19–78
[2020-05-28] MEDS ORDERED: PHENYLEPHRINE 10 MG/1 ML VIAL ONE (00:09)
[2020-05-28] MEDS: PHENYLEPHRINE IV 50 MG in IV NORMAL SALINE 245 ML IV PRN ×3 (00:21→20:31)
--- NOTE | 2020-05-28 00:21 | NUR ---
Neosynephrine drip started to keep SBP above 90. Unable to scan medication vials.
[2020-05-28] MEDS ORDERED: Z GUARD REMEDY PASTE 57 GM TUBE TOP PRN (01:45)
[2020-05-28] MEDS: PROPOFOL 100 ML IV PRN ×4 (04:12→21:14)
[2020-05-28] MEDS: PIPERACILLIN SODIUM/TAZOBACTAM 3.375 G in IV DEXTROSE 5% 50 ML IV SCH ×3 (04:16→20:33)
[2020-05-28 04:59] LABS: BASOPHILS # (AUTO) 0.1 K/uL (0.0-8.0); BASOPHILS % (AUTO) 0.5 % (0.0-2.0); EOSINOPHILS # (AUTO) 0.1 K/uL (0.0-0.7); EOSINOPHILS % (AUTO) 0.4 % (0.0-7.0); HEMATOCRIT 25.7 % (31.2-41.9); HEMOGLOBIN 8.7 g/dL (10.9-14.3); LYMPHOCYTES # (AUTO) 1.3 K/uL (20.0-40.0); LYMPHOCYTES % (AUTO) 9.4 % (20.5-51.5); MEAN CORPUSCULAR HEMOGLOBIN 29.2 uug (24.7-32.8); MEAN CORPUSCULAR HGB CONC 34 g/dL (32.3-35.6); MEAN CORPUSCULAR VOLUME 86.6 fL (75.5-95.3); MONOCYTES # (AUTO) 1.2 K/uL (2.0-10.0); MONOCYTES % (AUTO) 8.2 % (0.0-11.0); NEUTROPHILS # (AUTO) 11.6 K/uL (1.8-8.9); NEUTROPHILS % (AUTO) 81.5 % (38.5-71.5); PLATELET COUNT (AUTO) 369 K/uL (179-408); RED BLOOD CELL COUNT(AUTO) 2.97 MIL/uL (3.63-4.92); WHITE BLOOD COUNT (AUTO) 14.3 K/uL (3.8-11.8)
[2020-05-28 05:05] LABS: CREATININE 0.8 mg/dL (0.6-1.3); MAGNESIUM 2.1 mg/dL (1.8-2.4); PHOSPHOROUS 2.6 mg/dL (2.5-4.9); POTASSIUM 3.1 mmol/L (3.5-5.1)
--- NOTE | 2020-05-28 05:50 | NUR ---
Grimacing, mildly agitated after CXR and turning. RR 22-28/min. Medicated with Dilaudid IV. Diprivan drip titrated up to 35 mcg/kg/min. Tolerating NGT feedings fairly well; off [id number]. Addendum: 05/28/20 at 0636 by TIA GIVENS RN Amended: Links added.
[2020-05-28] MEDS: HYDROMORPHONE 1 MG/1 ML DISP.SYRIN IV PRN ×2 (05:57→21:02)
[2020-05-28] MEDS: IV 1/2NS 1000 ML 1,000 ML IV PRN ×2 (05:57→18:16)
[2020-05-28] MEDS: LEVOTHYROXINE SODIUM 50 MCG TABLET NG SCH (06:03)
[2020-05-28] MEDS ORDERED: ALBUTEROL SULFATE 2.5 MG/3 ML NEBU NEB PRN (06:15)
[2020-05-28] MEDS: ENOXAPARIN SODIUM 80 MG/0.8 ML DISP.SYRIN SQ SCH ×2 (07:15→18:00)
--- NOTE | 2020-05-28 07:15 | NUR ---
Spoke to Merlin TABOR re: Lovenox dose this am and plan of care. Ordered to hold dose for now and obtain consents for both PICC line and PleurX insertions. Farzana SENA aware of orders.
[2020-05-28 07:52] LABS: ABG BASE EXCESS 3.5 mmol/L; ABG HCO3 27.5 mmol/L; ABG PCO2 39.7 mmHg (35.0-45.0); ABG PH 7.459 (7.350-7.450); ABG PO2 81.8 mmHg (75.0-100.0); ABG SITE LEFT RADIAL; ABG TOTAL HEMOGLOBIN 9.1 G/dL (12.0-16.0); COHb 0.6 % (0.5-1.5); MetHb 0.1 % (0.0-1.5); O2Hb 95.5 % (94.0-97.0); VENT MODE VENT - A/C 16; VT, ABG 450 mL
--- NOTE | 2020-05-28 08:15 | NUR ---
Attending TARIQ Gordon in the unit to see and examine patient, He was informed of pt's oncologist suggestion to use portal cath orders to continue with care plan to insert picc line to due multiple iv fluid and pressors running. Boat Ride Operator notified of the need for picc line.
[2020-05-28] MEDS: POTASSIUM CHLORIDE 50 ML IV SCH ×4 (08:24→10:44)
[2020-05-28] MEDS: PANTOPRAZOLE SODIUM 40 MG VIAL IV SCH (08:24)
[2020-05-28] MEDS: Z GUARD REMEDY PASTE 57 GM TUBE TOP SCH ×2 (08:24→20:32)
--- NOTE | 2020-05-28 09:51 | NUR ---
Pulmonary services, Dr. Deleon in the unit to see and examine patient, full report given see orders hx.
[2020-05-28] MEDS ORDERED: MORPHINE SULFATE 4 MG/1 ML DISP.SYRIN IV PRN (13:00)
--- NOTE | 2020-05-28 13:00 | NUR ---
A call from Stefan Holloway and orders to call pt's Bandar Horan to consent for right chest tube insertion. As stated procedure already discuss with Mr. Portillo via phone.
[2020-05-28] MEDS ORDERED: LIDOCAINE HCL 2% 20 ML VIAL IJ ONE (14:30)
--- NOTE | 2020-05-28 14:30 | NUR ---
Cardiothoracic Dr. Garsia at bedside for right chest tube insertion: Timt out verification done with and RJohannN. Ms. Coy. Patient premedicated with morphine. also assisted by RT Siddharth. patient tolerated procedure well,and at the time of insertion a large amount of bloody output, noted. Procedure follow up by ordered chest x-ray pending results. Vitals stable, see VS spread-sheet. RT at bedside. chest tube left to continuous wall suction at 50cm set up by . No signs of air leak. Insertion site covered with petroleum dressing, and secured to pt. and to floor.
--- NOTE | 2020-05-28 19:30 | NUR ---
Report received. Patient orally intubated and to mechanical ventilator with same settings. O2 sats 97-100%. S/P R chest tube insertion for large R pleural effusion. Chest tube to water sealed 20 cm suction with sanguineous drainage. No crepitus noted. Edvin SAWANT at bedside. Assessment completed. On continuous Diprivan and Neosynephrine drips via KATLYN PICC line. See IV spread sheet for rates/dosages. Turned and repositioned; skin care provided. With facial grimacing to care. Addendum: 05/28/20 at 2021 by TIA GIVENS RN Amended: Links added.
--- NOTE | 2020-05-28 19:36 | NUR ---
RECEIVED PT ON LAKHANI VENT WITH GIVEN SETTINGS OF AC 16, VT 450, PEEP +0, FI02 30%. PATIENT IS INTUBATED WITH 7.0 ETT SECURED WITH AN ANCHOR FAST @ APPROX 23CM @ LIP. NO SIGNS OF RESP DISTRESS NOTED. VENT ALARMS ON AND AUDIBLE. WILL CONTINUE TO MONITOR PATIENT THROUGHOUT SHIFT.
[2020-05-28] MEDS: QUETIAPINE FUMARATE 100 MG TABLET NG SCH (20:31)
[2020-05-28] MEDS: GABAPENTIN 100 MG CAPSULE NG SCH (20:32)
--- NOTE | 2020-05-28 21:00 | NUR ---
RR 24-27/min, grimacing. Medicated with Dilaudid IV for generalized discomfort/pain. Tolerating NGT feedings well. Rate increased to goal of 65 ml/H. Addendum: 05/28/20 at 2 by TIA GIVENS RN Amended: Links added.
--- NOTE | 2020-05-28 22:00 | NUR ---
HR noted to be slowly increasing. Temp checked=99.2 orally. Tylenol given via NGT. Cooling measures done. Addendum: 05/28/20 at 2245 by TIA GIVENS RN Amended: Links added.
[2020-05-28] MEDS: ACETAMINOPHEN 650 MG/20.3 ML LIQUID UDC NG PRN (22:06)
[2020-05-29] VITALS (81 sets, daily range): BP systolic 88–126; BP diastolic 31–86
[2020-05-29] MEDS: PROPOFOL 100 ML IV PRN ×5 (02:21→22:28)
[2020-05-29] MEDS: OSMOLITE 1.2 CAL 1,000 ML LIQUID GT PRN (02:25)
[2020-05-29] MEDS: PIPERACILLIN SODIUM/TAZOBACTAM 3.375 G in IV DEXTROSE 5% 50 ML IV SCH ×2 (04:41→13:36)
[2020-05-29] MEDS: ACETAMINOPHEN 650 MG/20.3 ML LIQUID UDC NG PRN ×3 (04:42→23:24)
[2020-05-29 04:49] LABS: BASOPHILS # (AUTO) 0.1 K/uL (0.0-8.0); BASOPHILS % (AUTO) 0.5 % (0.0-2.0); EOSINOPHILS # (AUTO) 0.1 K/uL (0.0-0.7); EOSINOPHILS % (AUTO) 0.9 % (0.0-7.0); HEMATOCRIT 23.9 % (31.2-41.9); HEMOGLOBIN 7.9 g/dL (10.9-14.3); LYMPHOCYTES % (AUTO) 8.2 % (20.5-51.5); MEAN CORPUSCULAR HEMOGLOBIN 28.8 uug (24.7-32.8); MEAN CORPUSCULAR HGB CONC 33 g/dL (32.3-35.6); MEAN CORPUSCULAR VOLUME 87.1 fL (75.5-95.3); MONOCYTES # (AUTO) 1.2 K/uL (2.0-10.0); MONOCYTES % (AUTO) 9.9 % (0.0-11.0); NEUTROPHILS # (AUTO) 9.8 K/uL (1.8-8.9); NEUTROPHILS % (AUTO) 80.5 % (38.5-71.5); PLATELET COUNT (AUTO) 330 K/uL (179-408); RED BLOOD CELL COUNT(AUTO) 2.74 MIL/uL (3.63-4.92); WHITE BLOOD COUNT (AUTO) 12.2 K/uL (3.8-11.8)
[2020-05-29 04:57] LABS: CREATININE 0.7 mg/dL (0.6-1.3); MAGNESIUM 1.9 mg/dL (1.8-2.4); PHOSPHOROUS 2.2 mg/dL (2.5-4.9); POTASSIUM 3.2 mmol/L (3.5-5.1)
[2020-05-29] MEDS: HYDROMORPHONE 1 MG/1 ML DISP.SYRIN IV PRN ×3 (04:59→23:22)
--- NOTE | 2020-05-29 05:00 | NUR ---
Medicated with Tylenol, Temp=99.1 and Dilaudid for tachypnea and generalized discomfort.
[2020-05-29] MEDS: ENOXAPARIN SODIUM 80 MG/0.8 ML DISP.SYRIN SQ SCH ×3 (06:00→18:00)
[2020-05-29] MEDS: LEVOTHYROXINE SODIUM 50 MCG TABLET NG SCH (06:15)
[2020-05-29] MEDS: PANTOPRAZOLE ORAL SUSPENSION 40 MG SUSPDR.PKT GT SCH (06:15)
[2020-05-29] MEDS: IV 1/2NS 1000 ML 1,000 ML IV PRN (06:16)
--- NOTE | 2020-05-29 06:30 | NUR ---
Remains on Diprivan drip at 50 mcg/kg/min and Neosynephrine drip at 0.7 mcg/kg/min. Saturations maintaining above 94% on current vent settings. Tolerating NGT feedings well at 65 ml/H; off [id number]. Had 60 ml bloody drainage from chest tube the entire shift. No crepitus noted. Call placed to Dr. Tariq re: Lovenox dose. H/H this am =7.9/23.9. Still with small amounts of bloody secretions from ETT. Awaiting call back. Addendum: 05/29/20 at 0640 by TIA GIVENS RN Amended: Links added. Addendum: 05/29/20 at 0701 by TIA GIVENS RN Amended: Links added.
--- NOTE | 2020-05-29 06:40 | NUR ---
Dr. Tariq called back; informed of patient's condition, Lovenox dose and this am H/H. Ordered to hold dose for now.
[2020-05-29] MEDS ORDERED: POTASSIUM CHLORIDE 20 MEQ POWDER PACKET GT ONE (07:30)
--- NOTE | 2020-05-29 07:30 | NUR ---
Cardiology services Dr. Puckett in the unit, full report given to Dr. Puckett. See order history for new orders. Dr. Puckett at bedside assessing patient.
[2020-05-29 07:46] LABS: ABG BASE EXCESS 3.6 mmol/L; ABG PCO2 42.1 mmHg (35.0-45.0); ABG PH 7.441 (7.350-7.450); ABG PO2 66.9 mmHg (75.0-100.0); ABG SITE RIGHT RADIAL; ABG TOTAL HEMOGLOBIN 8.7 G/dL (12.0-16.0); COHb 0.9 % (0.5-1.5); MetHb 0.2 % (0.0-1.5); O2Hb 92.9 % (94.0-97.0); VENT MODE VENT - A/C; VT, ABG 450 mL
[2020-05-29] MEDS: POTASSIUM CHLORIDE 50 ML IV SCH ×4 (07:59→11:57)
--- NOTE | 2020-05-29 08:05 | NUR ---
Received PT in stable respiratory condition on Lucas vent with MD ordered vent settings of: AC mode, Rate of 16, Vt 450, +0, 30% FiO2. ETT tube 7.0mm secured by anchor fast 23cm at lip line. All alarms on and audible. Suctioned PRN. No respiratory distress noted. Will continue to monitor.
[2020-05-29] MEDS: Z GUARD REMEDY PASTE 57 GM TUBE TOP SCH ×2 (09:06→20:57)
--- NOTE | 2020-05-29 09:45 | NUR ---
Pulmonary services Dr. Deleon in the unit, full report given to Dr. Deleon. See order history for new orders. Dr. Deleon at bedside assessing patient.
[2020-05-29] MEDS ORDERED: NEUTRA PHOS PACKET NG ONE (15:45)
--- NOTE | 2020-05-29 20:00 | NUR ---
Received patient orally intubated and to mechanical ventilator with same settings. O2 sats good. Assessment done; see flow sheet for completed data.
[2020-05-29] MEDS: CEFEPIME HCL 1 G in IV DEXTROSE 5% 50 ML IV SCH (20:57)
[2020-05-29] MEDS: GABAPENTIN 100 MG CAPSULE NG SCH (20:58)
[2020-05-29] MEDS: QUETIAPINE FUMARATE 100 MG TABLET NG SCH (20:58)
--- NOTE | 2020-05-29 23:22 | NUR ---
Tolerating NGT feedings well; no residuals. Facial grimacing to care. Medicated with Dilaudid IV for generalized discomfort.
[2020-05-30] VITALS (71 sets, daily range): BP systolic 49–143; BP diastolic 19–81
--- NOTE | 2020-05-30 01:57 | NUR ---
PT ON CONT LAKHAIN VENT WITH 7.0 ET/TUBE , 23 LIP LINE, PT DOES ASSIST AT TIMES, WITH SEDATION, SUCTIONED LIGHT PALE YELL TINGE SECRETIONS, AND SUCTION MOUTH WITH PILAR BARRIOS WELL, CHANGE HME, NO VENT CHANGES MADE AT THIS TIME, ADJUST ANCHOR FAST, WEANING IN AM AT 0800 TRIAL CPAP 8. D GRICEL TELLEZ Addendum: 05/30/20 at 0159 by KANDICE MONSALVE RT Amended: Links added.
[2020-05-30] MEDS: PROPOFOL 100 ML IV PRN ×5 (02:13→22:53)
[2020-05-30] MEDS: IV NORMAL SALINE 250 ML IV PRN (03:43)
[2020-05-30] MEDS: OSMOLITE 1.2 CAL 1,000 ML LIQUID GT PRN ×2 (04:50→10:32)
[2020-05-30] MEDS: ACETAMINOPHEN 650 MG/20.3 ML LIQUID UDC NG PRN ×2 (04:53→15:40)
[2020-05-30 05:26] LABS: BASOPHILS % (AUTO) 0.2 % (0.0-2.0); EOSINOPHILS # (AUTO) 0.2 K/uL (0.0-0.7); EOSINOPHILS % (AUTO) 1.2 % (0.0-7.0); HEMOGLOBIN 8.2 g/dL (10.9-14.3); LYMPHOCYTES # (AUTO) 0.8 K/uL (20.0-40.0); LYMPHOCYTES % (AUTO) 5.9 % (20.5-51.5); MEAN CORPUSCULAR HEMOGLOBIN 29.1 uug (24.7-32.8); MEAN CORPUSCULAR HGB CONC 33 g/dL (32.3-35.6); MEAN CORPUSCULAR VOLUME 88.4 fL (75.5-95.3); MONOCYTES # (AUTO) 1.3 K/uL (2.0-10.0); MONOCYTES % (AUTO) 10.2 % (0.0-11.0); NEUTROPHILS # (AUTO) 10.8 K/uL (1.8-8.9); NEUTROPHILS % (AUTO) 82.5 % (38.5-71.5); PLATELET COUNT (AUTO) 329 K/uL (179-408); RED BLOOD CELL COUNT(AUTO) 2.83 MIL/uL (3.63-4.92); WHITE BLOOD COUNT (AUTO) 13.1 K/uL (3.8-11.8)
[2020-05-30 05:35] LABS: BILIRUBIN,TOTAL 0.3 mg/dL (0.2-1.0); CREATININE 0.6 mg/dL (0.6-1.3); POTASSIUM 3.5 mmol/L (3.5-5.1); TOTAL PROTEIN, SERUM 5.8 g/dL (6.4-8.2)
[2020-05-30] MEDS: ENOXAPARIN SODIUM 80 MG/0.8 ML DISP.SYRIN SQ SCH ×2 (06:00→17:42)
--- NOTE | 2020-05-30 06:00 | NUR ---
Remains on the same vent settings. With order for CPAP trial at 0800. NGT feedings tolerated well; off [id number].
[2020-05-30] MEDS: PANTOPRAZOLE ORAL SUSPENSION 40 MG SUSPDR.PKT GT SCH (06:21)
[2020-05-30] MEDS: LEVOTHYROXINE SODIUM 50 MCG TABLET NG SCH (06:21)
--- NOTE | 2020-05-30 07:30 | NUR ---
Attending MD Dr. Wynn at in the unit, full report given. See order history for new orders. Dr. Wynn at bedside assessing patient.
--- NOTE | 2020-05-30 08:30 | NUR ---
Cardiology services Dr. Puckett in the unit, full report given to Dr. Bhatti. See order history for new orders. Dr. Puckett at the bedside assessing patient.
--- NOTE | 2020-05-30 08:50 | NUR ---
Initiated CPAP trial, patient failed trial. Patient became tachycardic in the 130's, patient tachypneic 41RR at desaturation to Sats of 88%. Patient became diaphoretic. [place] done for about 45 min. ABG's drawn. Patient placed back on sedation and on AC support.
[2020-05-30 09:00] LABS: ABG BASE EXCESS 2.6 mmol/L; ABG HCO3 29.1 mmol/L; ABG PCO2 55.5 mmHg (35.0-45.0); ABG PH 7.338 (7.350-7.450); ABG PO2 77.4 mmHg (75.0-100.0); ABG SITE RIGHT RADIAL; ABG TOTAL HEMOGLOBIN 9.5 G/dL (12.0-16.0); COHb 0.5 % (0.5-1.5); CPAP,BG 0 cmH20; MetHb 0.2 % (0.0-1.5); O2Hb 94.1 % (94.0-97.0); VENT MODE VENT - CPAP PSV8; VT, ABG 393 mL
[2020-05-30] MEDS ORDERED: POTASSIUM CHLORIDE 20 MEQ POWDER PACKET GT ONE (09:00)
--- NOTE | 2020-05-30 09:15 | NUR ---
Pulmonary services Dr. Deleon int he unit, full report given to Dr. Deleon. See order history for new orders. Dr. Deleon at bedside assessing patient.
[2020-05-30] MEDS: CEFEPIME HCL 1 G in IV DEXTROSE 5% 50 ML IV SCH ×2 (09:29→21:58)
[2020-05-30] MEDS: Z GUARD REMEDY PASTE 57 GM TUBE TOP SCH ×2 (09:30→21:59)
[2020-05-30] MEDS: PHENYLEPHRINE IV 50 MG in IV NORMAL SALINE 245 ML IV PRN (10:05)
[2020-05-30] MEDS: HYDROMORPHONE 1 MG/1 ML DISP.SYRIN IV PRN (15:40)
[2020-05-30] MEDS ORDERED: NEUTRA PHOS PACKET GT ONE (17:00)
--- NOTE | 2020-05-30 17:20 | NUR ---
PT REC'D ORALLY INTUBATED ON LAKHANI VENT, PT SEDATED RESTING COMFORTABLY ON CURRENT AC SETTINGS. THIS AM WEANING PERFORMED CPAP PS8, DID NOT TOLERATE 1HR. ABG DONE AT 40MINS AND PLACED BACK TO PREVIOUS AC SETTINGS FOLLOWING ABG RESULTS. SXN'ING PERFORMED Q2. ORAL CARE DONE. VENT ALARMS AUDIBLE, CHECKED AND RESET. CONT TO MONITOR AND REPORT ANY CHANGES. CONT WITH CURRENT RT PLAN OF CARE
[2020-05-30] MEDS ORDERED: SODIUM PHOSPHATE MM 15 MMOL in IV NORMAL SALINE 250 ML IV ONE (18:00)
--- NOTE | 2020-05-30 20:00 | NUR ---
RECEIVED PT. ORALLY INTUBATED TO VENT W/ SETTINGS OF AC-16, TV-450, FIO2-30% W/ O2 SAT OF 98%. ON DIPRIVAN DRIP @ 50MCQ/KG/MIN VIA KATLYN PICC LINE.NEOSYNEPHRINE DRIP @ 0.1MCQ/KG/MIN. NGT ON R NARE CHECKED PLACEMENT & CHECKED RESIDUAL 30 CC NOTED. REPOSITIONED ON HER SIDE W/ HOB ELEVATED.
[2020-05-30] MEDS: QUETIAPINE FUMARATE 100 MG TABLET NG SCH (21:58)
[2020-05-30] MEDS: GABAPENTIN 100 MG CAPSULE NG SCH (21:58)
--- NOTE | 2020-05-30 22:05 | NUR ---
HS CARE DONE. REPOSITIONED W/ HOB ELEVATED.
[2020-05-31] VITALS (67 sets, daily range): BP systolic 86–138; BP diastolic 49–78
[2020-05-31] MEDS: OSMOLITE 1.2 CAL 1,000 ML LIQUID GT PRN (00:07)
[2020-05-31] MEDS: PROPOFOL 100 ML IV PRN ×6 (03:25→22:56)
[2020-05-31] MEDS: IV NORMAL SALINE 250 ML IV PRN (03:53)
--- NOTE | 2020-05-31 04:00 | NUR ---
AM CARE DONE. ORAL CARE DONE. REPOSITIONED PT W/ HOB ELEVATED.
[2020-05-31] MEDS: ACETAMINOPHEN 650 MG/20.3 ML LIQUID UDC NG PRN ×2 (04:38→21:03)
--- NOTE | 2020-05-31 04:52 | NUR ---
Patient was endorsed orally intubated with a 7.0 EtTube, ~23 cm lipline. She remains on AC settings with increased respiratory rate noted. Suctioned small amounts of thick pale yellow secretions. No complications noted. Alarms assessed and are on/audible. Will continue to monitor.
[2020-05-31 05:11] LABS: BASOPHILS # (AUTO) 0.1 K/uL (0.0-8.0); BASOPHILS % (AUTO) 0.5 % (0.0-2.0); EOSINOPHILS # (AUTO) 0.1 K/uL (0.0-0.7); HEMATOCRIT 23.9 % (31.2-41.9); HEMOGLOBIN 7.9 g/dL (10.9-14.3); LYMPHOCYTES # (AUTO) 0.6 K/uL (20.0-40.0); LYMPHOCYTES % (AUTO) 4.3 % (20.5-51.5); MEAN CORPUSCULAR HEMOGLOBIN 29.1 uug (24.7-32.8); MEAN CORPUSCULAR HGB CONC 33 g/dL (32.3-35.6); MONOCYTES # (AUTO) 1.3 K/uL (2.0-10.0); MONOCYTES % (AUTO) 9.2 % (0.0-11.0); NEUTROPHILS # (AUTO) 11.8 K/uL (1.8-8.9); PLATELET COUNT (AUTO) 333 K/uL (179-408); RED BLOOD CELL COUNT(AUTO) 2.72 MIL/uL (3.63-4.92); WHITE BLOOD COUNT (AUTO) 13.9 K/uL (3.8-11.8)
[2020-05-31 05:24] LABS: CREATININE 0.6 mg/dL (0.6-1.3); MAGNESIUM 2.1 mg/dL (1.8-2.4); PHOSPHOROUS 1.7 mg/dL (2.5-4.9); POTASSIUM 3.4 mmol/L (3.5-5.1)
[2020-05-31] MEDS: ENOXAPARIN SODIUM 80 MG/0.8 ML DISP.SYRIN SQ SCH ×2 (05:51→17:25)
--- NOTE | 2020-05-31 06:00 | NUR ---
OFF TUBE FDG, WILL RESUME @ 0800.
[2020-05-31] MEDS: PANTOPRAZOLE ORAL SUSPENSION 40 MG SUSPDR.PKT GT SCH (06:28)
[2020-05-31] MEDS: LEVOTHYROXINE SODIUM 50 MCG TABLET NG SCH (06:28)
--- NOTE | 2020-05-31 07:45 | NUR ---
Pt placed on CPAP by respiratory therapist per MD order for weaning trial. IV propofol weaned down per protocol.
--- NOTE | 2020-05-31 08:12 | NUR ---
Pt unable to tolerate CPAP weaning trial at this time. Pt noted to desaturate in the 60's and tachypneic. Pt placed back on previous AC settings as ordered. Pt now saturating wnl. Will continue to monitor.
[2020-05-31 08:46] LABS: ABG BASE EXCESS 3.8 mmol/L; ABG HCO3 28.6 mmol/L; ABG PCO2 44.7 mmHg (35.0-45.0); ABG PH 7.424 (7.350-7.450); ABG PO2 67.6 mmHg (75.0-100.0); ABG SITE RIGHT RADIAL; COHb 0.8 % (0.5-1.5); O2Hb 93.2 % (94.0-97.0); VENT MODE VENT - A/C; VT, ABG 450 mL
[2020-05-31] MEDS: Z GUARD REMEDY PASTE 57 GM TUBE TOP SCH ×2 (08:51→20:48)
[2020-05-31] MEDS: CEFEPIME HCL 1 G in IV DEXTROSE 5% 50 ML IV SCH ×2 (08:51→20:48)
--- NOTE | 2020-05-31 09:35 | NUR ---
Dr. Deleon here to see pt. Full report given. New orders received.
[2020-05-31] MEDS ORDERED: POTASSIUM CHLORIDE 20 MEQ POWDER PACKET NG ONE (09:45)
[2020-05-31] MEDS ORDERED: POTASSIUM PHOSPHATE MM 15 MMOL in IV NORMAL SALINE 250 ML IV ONE (12:00)
[2020-05-31] MEDS: LOPERAMIDE HCL 2 MG CAPSULE NG PRN ×2 (14:54→21:03)
--- NOTE | 2020-05-31 19:23 | NUR ---
Spoke with Dr. Gipson on the telephone. Full report given. No new orders received.
[2020-05-31] MEDS: QUETIAPINE FUMARATE 100 MG TABLET NG SCH (20:47)
[2020-05-31] MEDS: GABAPENTIN 100 MG CAPSULE NG SCH (20:47)
--- NOTE | 2020-05-31 21:41 | NUR ---
Pt rec'd on Lucas settings AC 16, VT 450, PEEP +5 and FIO2-30%. No resp. distress noted. 7.0 ETT is patent and secure at approx. 23cm at the lip. Pt to be monitored throughout the shift, PRN SX and adm'd resp tx's PRN per MD orders. Lucas alarm parameters have been checked and remain audible.
[2020-06-01] VITALS (69 sets, daily range): BP systolic 88–129; BP diastolic 26–80
[2020-06-01] MEDS: ACETAMINOPHEN 650 MG/20.3 ML LIQUID UDC NG PRN (03:06)
[2020-06-01] MEDS: PROPOFOL 100 ML IV PRN ×4 (04:00→21:28)
[2020-06-01 05:28] LABS: BASOPHILS # (AUTO) 0.1 K/uL (0.0-8.0); BASOPHILS % (AUTO) 0.7 % (0.0-2.0); EOSINOPHILS # (AUTO) 0.2 K/uL (0.0-0.7); EOSINOPHILS % (AUTO) 1.4 % (0.0-7.0); HEMATOCRIT 24.1 % (31.2-41.9); HEMOGLOBIN 7.9 g/dL (10.9-14.3); LYMPHOCYTES # (AUTO) 0.7 K/uL (20.0-40.0); LYMPHOCYTES % (AUTO) 5.3 % (20.5-51.5); MEAN CORPUSCULAR HGB CONC 33 g/dL (32.3-35.6); MEAN CORPUSCULAR VOLUME 88.6 fL (75.5-95.3); MONOCYTES # (AUTO) 1.5 K/uL (2.0-10.0); MONOCYTES % (AUTO) 11.8 % (0.0-11.0); NEUTROPHILS # (AUTO) 10.5 K/uL (1.8-8.9); NEUTROPHILS % (AUTO) 80.8 % (38.5-71.5); PLATELET COUNT (AUTO) 443 K/uL (179-408); RED BLOOD CELL COUNT(AUTO) 2.72 MIL/uL (3.63-4.92)
[2020-06-01] MEDS: PHENYLEPHRINE IV 50 MG in IV NORMAL SALINE 245 ML IV PRN ×2 (05:28→17:19)
[2020-06-01 05:37] LABS: CREATININE 0.7 mg/dL (0.6-1.3); MAGNESIUM 2.2 mg/dL (1.8-2.4); PHOSPHOROUS 2.2 mg/dL (2.5-4.9); POTASSIUM 3.6 mmol/L (3.5-5.1)
[2020-06-01] MEDS: PANTOPRAZOLE ORAL SUSPENSION 40 MG SUSPDR.PKT GT SCH (06:24)
[2020-06-01] MEDS: LEVOTHYROXINE SODIUM 50 MCG TABLET NG SCH (06:24)
[2020-06-01] MEDS: ENOXAPARIN SODIUM 80 MG/0.8 ML DISP.SYRIN SQ SCH ×2 (06:25→17:12)
[2020-06-01 07:42] LABS: ABG BASE EXCESS 5.1 mmol/L; ABG HCO3 29.3 mmol/L; ABG PCO2 42.1 mmHg (35.0-45.0); ABG PH 7.461 (7.350-7.450); ABG PO2 87.7 mmHg (75.0-100.0); ABG SITE RIGHT RADIAL; COHb 1.1 % (0.5-1.5); MetHb 0.3 % (0.0-1.5); O2Hb 95.8 % (94.0-97.0); VENT MODE VENT - A/C; VT, ABG 450 mL
[2020-06-01] MEDS: CEFEPIME HCL 1 G in IV DEXTROSE 5% 50 ML IV SCH ×2 (08:33→21:15)
[2020-06-01] MEDS: Z GUARD REMEDY PASTE 57 GM TUBE TOP SCH ×2 (08:34→21:16)
--- NOTE | 2020-06-01 08:45 | NUR ---
Dr. Garsia here to see pt. Full report given. No new orders received.
[2020-06-01] MEDS: IV NORMAL SALINE 250 ML IV PRN (09:01)
--- NOTE | 2020-06-01 09:12 | NUR ---
Dr. Deleon here to see pt. Full report given. New orders received.
[2020-06-01] MEDS ORDERED: POTASSIUM PHOSPHATE MM 7.5 MMOL in IV NORMAL SALINE 97.5 ML IV ONE (09:45)
--- NOTE | 2020-06-01 20:00 | NUR ---
RECEIVED PT. ORALLY INTUBATED TO VENT W/ SETTINGS OF AC-16, TV-450, FIO2-30%, PEEP-+5 W/ O2 SAT OF 99%.ON DIPRIVAN DRIP @ 50 MCQ/KG/MIN VIA PICC LINE ON KATLYN.ON NEOSYNEPHRINE DRIP @ 1MCQ/KG/MIN. NS @ 10CC/HR FOR IVPB MEDS. NGT ON R NARE, CHECKED PLACEMENT & CHECKED RESIDUAL 10CC NOTED. PT. IS INCONT. OF LIQUIDISH STOOL LARGE AMT. CLEANED & REPOSITIONED W/ HOB ELEVATED.SUCTIONED VIA ETT & ORALLY W/ SMALL AMT OF BLOOD TINGED MUCOUS.
[2020-06-01] MEDS: GABAPENTIN 100 MG CAPSULE NG SCH (21:16)
[2020-06-01] MEDS: QUETIAPINE FUMARATE 100 MG TABLET NG SCH (21:17)
--- NOTE | 2020-06-01 22:00 | NUR ---
PT HAD ANOTHER LIQUIDISH STOOL, REINSERTED FLEXISEAL TO GRAVITY DRAINAGE.
--- NOTE | 2020-06-01 23:00 | NUR ---
BEDBATH GIVEN. REINFORCED DRSG. ON R CHEST TUBE. REPOSITIONED W/ HOB ELEVATED.
[2020-06-02] VITALS (91 sets, daily range): BP systolic 64–144; BP diastolic 31–87
[2020-06-02] MEDS: PROPOFOL 100 ML IV PRN ×5 (02:23→20:51)
--- NOTE | 2020-06-02 02:26 | NUR ---
PT ON CONT LAKHANI VENT WITH 7.0 ET/TUBE IN PLACE , 23CM LIP LINE, VENT SETTINGS, A/C 16, VT 450, PEEP 30% - ANCHOR FAST MOVED EACH CHECK, SUCTIONED SLIGHT BLOODY TINGE SECRETIONS, LAVAGE WITH NS, CHECK CUFF, NO VENT CHANGES MADE, PPE USED, CHANGE HME -ABG IN AM @ 0800. D GRICEL CASTREJONP Addendum: 06/02/20 at 0229 by KANDICE MONSALVE RT Amended: Links added.
[2020-06-02] MEDS: IV NORMAL SALINE 250 ML IV PRN (03:40)
[2020-06-02] MEDS: PHENYLEPHRINE IV 50 MG in IV NORMAL SALINE 245 ML IV PRN ×2 (05:12→20:53)
[2020-06-02] MEDS: ENOXAPARIN SODIUM 80 MG/0.8 ML DISP.SYRIN SQ SCH ×2 (05:33→17:11)
[2020-06-02 05:36] LABS: BASOPHILS # (AUTO) 0.1 K/uL (0.0-8.0); BASOPHILS % (AUTO) 0.5 % (0.0-2.0); EOSINOPHILS # (AUTO) 0.1 K/uL (0.0-0.7); HEMATOCRIT 22.4 % (31.2-41.9); HEMOGLOBIN 7.5 g/dL (10.9-14.3); LYMPHOCYTES # (AUTO) 0.6 K/uL (20.0-40.0); LYMPHOCYTES % (AUTO) 5.2 % (20.5-51.5); MEAN CORPUSCULAR HEMOGLOBIN 29.3 uug (24.7-32.8); MEAN CORPUSCULAR HGB CONC 33 g/dL (32.3-35.6); MONOCYTES # (AUTO) 1.3 K/uL (2.0-10.0); MONOCYTES % (AUTO) 12.4 % (0.0-11.0); NEUTROPHILS # (AUTO) 8.6 K/uL (1.8-8.9); NEUTROPHILS % (AUTO) 80.9 % (38.5-71.5); PLATELET COUNT (AUTO) 410 K/uL (179-408); RED BLOOD CELL COUNT(AUTO) 2.55 MIL/uL (3.63-4.92); WHITE BLOOD COUNT (AUTO) 10.6 K/uL (3.8-11.8)
[2020-06-02 05:47] LABS: CREATININE 0.6 mg/dL (0.6-1.3); MAGNESIUM 2.1 mg/dL (1.8-2.4); PHOSPHOROUS 2.2 mg/dL (2.5-4.9); POTASSIUM 3.5 mmol/L (3.5-5.1)
--- NOTE | 2020-06-02 06:00 | NUR ---
REPOSITIONED AFTER CXR, OFF TUBE FDG WILL RESUMED @ 0800.
[2020-06-02] MEDS: PANTOPRAZOLE ORAL SUSPENSION 40 MG SUSPDR.PKT GT SCH (06:33)
[2020-06-02] MEDS: LEVOTHYROXINE SODIUM 50 MCG TABLET NG SCH (06:33)
[2020-06-02] MEDS: HYDROMORPHONE 1 MG/1 ML DISP.SYRIN IV PRN ×2 (07:35→13:22)
--- NOTE | 2020-06-02 07:55 | NUR ---
PATIENT RECEIVED INTUBATED ON LAKHANI VENT WITH SETTINGS AC 16, VT 450, PEEP +5, 30%. 7.0 ETT @ APPROX 23CM LIP. ABG DONE AND DIANA WELL. NO VENT CHANGES MADE. ALARMS ON AND AUDIBLE. WILL CONTINUE TO MONITOR THROUGH OUT SHIFT.
[2020-06-02] MEDS: CEFEPIME HCL 1 G in IV DEXTROSE 5% 50 ML IV SCH (08:09)
[2020-06-02] MEDS: Z GUARD REMEDY PASTE 57 GM TUBE TOP SCH ×2 (08:10→21:19)
[2020-06-02 08:20] LABS: ABG BASE EXCESS 6.6 mmol/L; ABG HCO3 31.8 mmol/L; ABG PH 7.422 (7.350-7.450); ABG SITE LEFT RADIAL; ABG TOTAL HEMOGLOBIN 7.9 G/dL (12.0-16.0); COHb 1.6 % (0.5-1.5); MetHb 0.3 % (0.0-1.5); O2Hb 93.9 % (94.0-97.0); VENT MODE VENT - A/C; VT, ABG 450 mL
--- NOTE | 2020-06-02 09:20 | NUR ---
pulmonary services, Dr. Deleon in the unit to see and examine patient full report given, at this time also spoke with pt's and discussed care plan; see Dr's note.
[2020-06-02] MEDS ORDERED: POTASSIUM CHLORIDE 20 MEQ POWDER PACKET GT ONE (10:00)
[2020-06-02] MEDS: OSMOLITE 1.2 CAL 1,000 ML LIQUID GT PRN (11:06)
[2020-06-02] MEDS: LOPERAMIDE HCL 2 MG CAPSULE NG PRN (11:12)
[2020-06-02] MEDS ORDERED: NEUTRA PHOS PACKET NG ONE (15:15)
--- NOTE | 2020-06-02 16:09 | NUR ---
a call to Dr. Deleon to notify that pt remains awake and restless with current propofol dose and alternate dilaudid. Orders to titrate propofol with a max to 100mcg/kg/min. for adequate sedation.
--- NOTE | 2020-06-02 16:45 | NUR ---
Attending physician Dr. Doe Frost in the unit to see and examine pt. full report given orders to continue with care plan received. plans for trache and peg with no orders yet.
--- NOTE | 2020-06-02 20:00 | NUR ---
RECEIVED PT.ORALLY INTUBATED TO VENT W/ SETTINGS OF AC-16, TV-450, FIO2-30%, PEEP-+5 W/ O2 SAT OF 98%. ON DIPRIVAN DRIP @ 7 MCQ/KG/MIN VIA PICC LINE ON KATLYN. ON NEOSYNEPHRINE DRIP @ 0.44MCQ/KG/MIN. NS @ 10CC/HR FOR IVPB MEDS. NGT ON R NARE, CHECKED PLACEMENT & CHECKED FOR RESIDUAL 10CC. ON TUBE FDG OF OSMOLITE 1.2 @ 65CC/HR. FLEXISEAL INTACT W/ LIQUIDISH GRAYISH STOOL. REPOSITIONED PT W/ HOB ELEVATED.
[2020-06-02] MEDS: GABAPENTIN 100 MG CAPSULE NG SCH (21:19)
[2020-06-02] MEDS: QUETIAPINE FUMARATE 100 MG TABLET NG SCH (21:19)
--- NOTE | 2020-06-02 22:00 | NUR ---
HS CARE DONE. ORAL CARE DONE. REPOSITIONED W/ HOB ELEVATED.
[2020-06-03] VITALS (70 sets, daily range): BP systolic 82–120; BP diastolic 40–77
--- NOTE | 2020-06-03 00:28 | NUR ---
PT ON CONT LAKHANI VENT WITH 7.0 ET/TUBE IN PLACE AND SECURED, WITH SAME CURRENT VENT SETTINGS, PT DOES ASSIST AT TIMES, SUCTION AT TIMES, PALE YELL TINGE SECRETIONS, AND SLIGHT PINKISH TINGE, SUCTION MOUTH WITH PILAR BARRIOS, NO VENT CHANGES MADE, ABG IN AM ON DAY SHIFT. Laverne MONSALVE RCP Addendum: 06/03/20 at 0031 by KANDICE MONSALVE RT Amended: Links added.
[2020-06-03] MEDS: PROPOFOL 100 ML IV PRN ×8 (00:38→20:48)
[2020-06-03] MEDS: IV NORMAL SALINE 250 ML IV PRN (03:19)
[2020-06-03] MEDS: ACETAMINOPHEN 650 MG/20.3 ML LIQUID UDC NG PRN ×2 (03:33→20:30)
[2020-06-03] MEDS: PHENYLEPHRINE IV 50 MG in IV NORMAL SALINE 245 ML IV PRN ×2 (03:37→12:27)
--- NOTE | 2020-06-03 04:00 | NUR ---
AM CARE DONE. ORAL CARE DONE. REPOSITIONED W/ HOB ELEVATED.
[2020-06-03 05:33] LABS: BASOPHILS # (AUTO) 0.1 K/uL (0.0-8.0); BASOPHILS % (AUTO) 0.5 % (0.0-2.0); EOSINOPHILS # (AUTO) 0.1 K/uL (0.0-0.7); EOSINOPHILS % (AUTO) 0.7 % (0.0-7.0); HEMATOCRIT 23.3 % (31.2-41.9); HEMOGLOBIN 7.5 g/dL (10.9-14.3); LYMPHOCYTES # (AUTO) 0.9 K/uL (20.0-40.0); LYMPHOCYTES % (AUTO) 6.9 % (20.5-51.5); MEAN CORPUSCULAR HEMOGLOBIN 28.3 uug (24.7-32.8); MEAN CORPUSCULAR HGB CONC 32 g/dL (32.3-35.6); MEAN CORPUSCULAR VOLUME 88.5 fL (75.5-95.3); MONOCYTES # (AUTO) 1.5 K/uL (2.0-10.0); MONOCYTES % (AUTO) 12.1 % (0.0-11.0); NEUTROPHILS % (AUTO) 79.8 % (38.5-71.5); PLATELET COUNT (AUTO) 435 K/uL (179-408); RED BLOOD CELL COUNT(AUTO) 2.64 MIL/uL (3.63-4.92); WHITE BLOOD COUNT (AUTO) 12.5 K/uL (3.8-11.8)
[2020-06-03 05:38] LABS: CREATININE 0.6 mg/dL (0.6-1.3); MAGNESIUM 2.2 mg/dL (1.8-2.4); PHOSPHOROUS 2.4 mg/dL (2.5-4.9); POTASSIUM 3.6 mmol/L (3.5-5.1)
[2020-06-03] MEDS: ENOXAPARIN SODIUM 80 MG/0.8 ML DISP.SYRIN SQ SCH ×2 (05:59→18:53)
--- NOTE | 2020-06-03 06:00 | NUR ---
OFF TUBE FDG,WILL RESUME @ 0800.
[2020-06-03] MEDS: PANTOPRAZOLE ORAL SUSPENSION 40 MG SUSPDR.PKT GT SCH (06:21)
[2020-06-03] MEDS: LEVOTHYROXINE SODIUM 50 MCG TABLET NG SCH (06:21)
[2020-06-03] MEDS: HYDROMORPHONE 1 MG/1 ML DISP.SYRIN IV PRN ×2 (08:07→20:08)
[2020-06-03] MEDS: Z GUARD REMEDY PASTE 57 GM TUBE TOP SCH ×2 (08:15→20:31)
[2020-06-03 08:34] LABS: ABG BASE EXCESS 4.7 mmol/L; ABG HCO3 29.6 mmol/L; ABG PCO2 46.3 mmHg (35.0-45.0); ABG PH 7.424 (7.350-7.450); ABG PO2 70.8 mmHg (75.0-100.0); ABG SITE LEFT RADIAL; ABG TOTAL HEMOGLOBIN 7.9 G/dL (12.0-16.0); COHb 1.1 % (0.5-1.5); MetHb 0.4 % (0.0-1.5); O2Hb 93.6 % (94.0-97.0); VENT MODE VENT - A/C; VT, ABG 450 mL
[2020-06-03] MEDS ORDERED: POTASSIUM PHOSPHATE MM 15 MMOL in IV NORMAL SALINE 250 ML IV ONE (09:00)
[2020-06-03 12:41] LABS: BILIRUBIN,DIRECT 0.2 mg/dL (0.0-0.2); BILIRUBIN,TOTAL 0.4 mg/dL (0.2-1.0); TOTAL PROTEIN, SERUM 6.2 g/dL (6.4-8.2)
--- NOTE | 2020-06-03 19:15 | NUR ---
Received patient in semi-fowlers position in bed. Patient is on Lucas ventilator, ETT 7.0 @23cm lipline. Vent settings AC16, Vt 450, FiO2 30%, PEEP 5. Patient has a chest tube in the right chest, connected to water seal suction, draining serosanguineous fluid. F/C draining clear yellow urine. Flexi-seal present draining brown liquid stool. left chest portacath accessed, no signs of infection. Patient ios not on pressors at this time. Propofol sedation running @80mcg/kg/min.
--- NOTE | 2020-06-03 20:15 | NUR ---
Patient has had a sudden decrease in blood pressure with SBP falling into the 80s. Restarted Phenylepherine at 0.5mcg/kg/min.
[2020-06-03] MEDS: GABAPENTIN 100 MG CAPSULE NG SCH (20:30)
[2020-06-03] MEDS: QUETIAPINE FUMARATE 100 MG TABLET NG SCH (20:30)
--- NOTE | 2020-06-03 20:30 | NUR ---
Patient's SBP further dropped to 83. increased pressor to 1mcg/kg/min.
[2020-06-04] VITALS (31 sets, daily range): BP systolic 100–144; BP diastolic 47–110
[2020-06-04] MEDS: HYDROMORPHONE 1 MG/1 ML DISP.SYRIN IV PRN ×3 (00:19→14:46)
[2020-06-04] MEDS: PROPOFOL 100 ML IV PRN ×7 (00:40→21:46)
--- NOTE | 2020-06-04 02:52 | NUR ---
PT ON CONT LAKHANI VENT WITH 7.0 ET/TUBE IN PLACE WITH SAME CURRENT VENT SETTINGS, PT DOES ASSIST AT TIMES, SUCTIONED PALE YELL AND PINKISH TINGE SECRETIONS, NO VENT CHANGES MADE, ALL VENT ALARMS GOOD, PPE USED.Laverne MONSALVE RCP Addendum: 06/04/20 at 0255 by KANDICE MONSALVE RT Amended: Links added.
[2020-06-04] MEDS: ACETAMINOPHEN 650 MG/20.3 ML LIQUID UDC NG PRN (04:13)
[2020-06-04 05:07] LABS: BASOPHILS # (AUTO) 0.1 K/uL (0.0-8.0); EOSINOPHILS # (AUTO) 0.2 K/uL (0.0-0.7); EOSINOPHILS % (AUTO) 1.8 % (0.0-7.0); LYMPHOCYTES # (AUTO) 0.6 K/uL (20.0-40.0); MEAN CORPUSCULAR HEMOGLOBIN 28.2 uug (24.7-32.8); MONOCYTES # (AUTO) 1.1 K/uL (2.0-10.0)
[2020-06-04 05:09] LABS: BASOPHILS % (AUTO) 0.5 % (0.0-2.0); HEMATOCRIT 22.9 % (31.2-41.9); LYMPHOCYTES % (AUTO) 5.5 % (20.5-51.5); MEAN CORPUSCULAR HGB CONC 32 g/dL (32.3-35.6); MEAN CORPUSCULAR VOLUME 87.9 fL (75.5-95.3); MONOCYTES % (AUTO) 9.4 % (0.0-11.0); NEUTROPHILS # (AUTO) 9.4 K/uL (1.8-8.9); NEUTROPHILS % (AUTO) 82.8 % (38.5-71.5); PLATELET COUNT (AUTO) 367 K/uL (179-408); RED BLOOD CELL COUNT(AUTO) 2.61 MIL/uL (3.63-4.92); WHITE BLOOD COUNT (AUTO) 11.4 K/uL (3.8-11.8)
[2020-06-04 05:16] LABS: CREATININE 0.6 mg/dL (0.6-1.3); PHOSPHOROUS 2.5 mg/dL (2.5-4.9)
[2020-06-04 05:23] LABS: HEMOGLOBIN 7.4 g/dL (10.9-14.3)
[2020-06-04] MEDS: LEVOTHYROXINE SODIUM 50 MCG TABLET NG SCH (06:33)
[2020-06-04] MEDS: ENOXAPARIN SODIUM 80 MG/0.8 ML DISP.SYRIN SQ SCH ×2 (06:33→18:22)
[2020-06-04] MEDS: PANTOPRAZOLE ORAL SUSPENSION 40 MG SUSPDR.PKT GT SCH (06:33)
--- NOTE | 2020-06-04 07:30 | NUR ---
Received patient from maintenance technician 2nd shift nurse, patient with ETT 7.0 at 23cm, a/c 16, TV 450, Fio2 40%, PEEP 5. Patient is sedated on propofol 70 mcg/kg/min, tube feeding osmolite at 65cc/hr, rectal tube in place, armando draining yellow urine, chest tube on right chest wall. patient noted to have fever 101.8, sinus rhythm on the monitor, heel offloading, and head elevated with side rails upx2.
[2020-06-04 07:53] LABS: ABG BASE EXCESS 6.1 mmol/L; ABG PCO2 63.2 mmHg (35.0-45.0); ABG PH 7.335 (7.350-7.450); ABG PO2 87.6 mmHg (75.0-100.0); ABG SITE RIGHT RADIAL; ABG TOTAL HEMOGLOBIN 8.1 G/dL (12.0-16.0); COHb 1.3 % (0.5-1.5); MetHb 0.4 % (0.0-1.5); VENT MODE VENT - A/C 16; VT, ABG 450 mL
[2020-06-04] MEDS: Z GUARD REMEDY PASTE 57 GM TUBE TOP SCH ×2 (09:07→20:26)
[2020-06-04] MEDS ORDERED: MEROPENEM 0.5 G in IV NORMAL SALINE 50 ML IV SCH (18:30)
--- NOTE | 2020-06-04 18:57 | NUR ---
Patient continues with ETT 7.0 at 23cm, a/c 16, TV 450, Fio2 40%, PEEP 5. Patient is sedated on propofol 70 mcg/kg/min, tube feeding osmolite at 65cc/hr, rectal tube in place, armando draining yellow urine 400cc this shift, chest tube on right chest wall 300 serosanguinous drainage this shift. Patient currently has temp 99.2, sinus rhythm on the monitor, heel offloading, and head elevated with side rails upx2. Bed in low position, side rails upx2. Scd's on.
--- NOTE | 2020-06-04 19:15 | NUR ---
patient is lethargic , arousable to light pain , vent settings ac 16 , tv 450 , p5 , fio2of 40 % , ngt feeding of osmolite 65 ml . no residual , chest tube on the right lateral m intact , picc line rught arm intact
--- NOTE | 2020-06-04 20:01 | NUR ---
PHARMACY CLINICAL NOTES: (VANCOMYCIN DOSING) S: 65 YO female ; with HX of Acute resp failure, Loculated pleural effusion, Metastatic lung CA, s/p surgery and chemoradiation MD ordered IV abx for tonight (family are in process of deciding for comfort measures) ID is aware. O: BUN/SCR 25/0.6, WBC 11.4, TEM9 101.8, DOSING WT 154 LBS A/P: Will start vancomycin as 1250 mg q14h , first dose tonight , estimated peak of 41 and trough of 17, plan to order trough prior to 3rd dose if decide to continue antibiotics therapy. Will continue to monitor
[2020-06-04] MEDS: GABAPENTIN 100 MG CAPSULE NG SCH (20:17)
[2020-06-04] MEDS: QUETIAPINE FUMARATE 100 MG TABLET NG SCH (20:17)
[2020-06-04] MEDS ORDERED: VANCOMYCIN IV 1,250 MG in IV DEXTROSE 5% 250 ML IV SCH (21:00)
[2020-06-04] MEDS: MEROPENEM 0.5 G in IV NORMAL SALINE 50 ML IV SCH (21:39)
--- NOTE | 2020-06-04 22:22 | NUR ---
ON A VENTILATOR CURRENTLY TOLERATING AC 16 TV 450 P5 FIO2 40 Addendum: 06/04/20 at 2222 by RASHEL ORTIZ RN Amended: Links added.
--- NOTE | 2020-06-04 22:23 | NUR ---
CURRENTLY ON A VANCOMYCIN , MEREPENEM Addendum: 06/04/20 at 2223 by RASHEL ORTIZ RN Amended: Links added.
[2020-06-05] VITALS (19 sets, daily range): BP systolic 0–131; BP diastolic 0–81
--- NOTE | 2020-06-05 00:49 | NUR ---
RECEIVED PT ORALLY INTUBATED WITH A SIZE 7.0 ET TUBE. ET TUBE IS SECURED WITH THE ANCHOR FAST. ORAL CARE DONE. SUCTIONED WHITE/YELLOW SECRETIONS. ALARMS CHECKED AND THEY ARE ON AND AUDIBLE. HME AND BACTERIA/VIRAL FILTER CHANGED. NO ADVERSE REACTIONS. AMBU BAG IS BY BEDSIDE. WILL CONTINUE TO MONITOR.
[2020-06-05] MEDS: PROPOFOL 100 ML IV PRN ×2 (01:13→04:50)
[2020-06-05] MEDS: MEROPENEM 0.5 G in IV NORMAL SALINE 50 ML IV SCH (04:49)
[2020-06-05] MEDS: PANTOPRAZOLE ORAL SUSPENSION 40 MG SUSPDR.PKT GT SCH (05:21)
[2020-06-05] MEDS: LEVOTHYROXINE SODIUM 50 MCG TABLET NG SCH (05:21)
[2020-06-05] MEDS: OSMOLITE 1.2 CAL 1,000 ML LIQUID GT PRN (05:29)
[2020-06-05] MEDS: ENOXAPARIN SODIUM 80 MG/0.8 ML DISP.SYRIN SQ SCH (06:07)
--- NOTE | 2020-06-05 06:57 | NUR ---
patient is lethargic , ngt feeding 65 ml no residual , diprivan 50 mcg , ac 16 tv 450 p 5 40 fio2 left picc intact
[2020-06-05] MEDS: Z GUARD REMEDY PASTE 57 GM TUBE TOP SCH (09:05)
--- NOTE | 2020-06-05 11:00 | NUR ---
and daughter came to see patient.
--- NOTE | 2020-06-05 11:32 | NUR ---
family is in the room.
[2020-06-05] MEDS ORDERED: DC PROPOFOL ONCE EXTUBATED XX PRN (13:07)
[2020-06-05] MEDS ORDERED: MORPHINE SULFATE 2 MG/1 ML DISP.SYRIN IV PRN (13:15)
[2020-06-05] MEDS ORDERED: MORPHINE SULFATE PF IV DRIP 100 MG in IV DEXTROSE 5% 96 ML IV PRN (13:30)
--- NOTE | 2020-06-05 13:40 | NUR ---
patient extubated at this time premedicated with morphine and ativan.
[2020-06-05] MEDS: LORAZEPAM 2 MG/1 ML VIAL IV PRN ×3 (13:50→18:30)
--- NOTE | 2020-06-05 15:35 | NUR ---
Per notes, the decision has been made by the family today for terminal extubation and comfort measures only. Addendum: 06/05/20 at [address] Amended: Links added.
--- NOTE | 2020-06-05 19:15 | NUR ---
report given to ronald SENA
--- NOTE | 2020-06-05 19:43 | NUR ---
PT PRONOUNCED BY MYSELF AND PRETTY SENA. PULIS FIXED, NO HEART RATE/PALPABLE PULSE/APNIC/NO CORNEAL RESPONSE. JUDD THE HOSP SUPERVISER NOTIFIED.
--- NOTE | 2020-06-05 19:43 | NUR ---
Patient apneic for 5 minutes, pupils are fixed and dilated, No corneal reflexes. No audible heart tones, breath sounds for 1 minute. No palpable pulses for 1 minute. Patient pronounced at 1943. Physicians notified.
--- NOTE | 2020-06-05 21:15 | NUR ---
DR BRITO NOTIFEIED AT 2114 OF TIME OF . ALSO CALLED [facility] SPOKE TO JUSTINO IN REGARDS TO CASE. JUSTINO STATED PT DID NOT MEET REQUIREMENTS, CASE #[id number].
--- NOTE | 2020-06-05 23:00 | NUR ---
PT TRANSPORTED TO [facility] [place].
== END 2020-06-05 19:43 | disposition expired | DRG 870 ==
LOC: ER 19:48 → CCU 05-26 03:22
PROVIDERS: ADMIT Nurse Practitioner Acute Care; ATTEND Nurse Practitioner Acute Care
PROC: 0BH17EZ Insertion of Endotracheal Airway into Trachea, Via Natural or Artificial Opening (ICD-10-PCS; 2020-05-25)
PROC: 5A1955Z Respiratory Ventilation, Greater than 96 Consecutive Hours (ICD-10-PCS; principal; 2020-05-26)
PROC: 0W9930Z Drainage of Right Pleural Cavity with Drainage Device, Percutaneous Approach (ICD-10-PCS; 2020-05-28)
PROC: 02HV33Z Insertion of Infusion Device into Superior Vena Cava, Percutaneous Approach (ICD-10-PCS; 2020-05-28)
PROC: B548ZZA Ultrasonography of Superior Vena Cava, Guidance (ICD-10-PCS; 2020-05-28)
DX: A41.9 Sepsis, unspecified organism (principal); J96.01 Acute respiratory failure with hypoxia; E43 Unspecified severe protein-calorie malnutrition; J18.9 Pneumonia, unspecified organism; R65.21 Severe sepsis with septic shock; J96.02 Acute respiratory failure with hypercapnia; C34.91 Malignant neoplasm of unspecified part of right bronchus or lung; J91.0 Malignant pleural effusion; D68.69 Other thrombophilia; E87.0 Hyperosmolality and hypernatremia; J44.0 Chronic obstructive pulmonary disease with (acute) lower respiratory infection; E87.2 Acidosis; J98.11 Atelectasis; C78.2 Secondary malignant neoplasm of pleura; Z51.5 Encounter for palliative care; Z66 Do not resuscitate; E03.9 Hypothyroidism, unspecified; E83.39 Other disorders of phosphorus metabolism; E87.6 Hypokalemia; Z87.891 Personal history of nicotine dependence; Z86.711 Personal history of pulmonary embolism; Z87.01 Personal history of pneumonia (recurrent); Z90.2 Acquired absence of lung [part of]; Z92.21 Personal history of antineoplastic chemotherapy; E88.09 Other disorders of plasma-protein metabolism, not elsewhere classified; Z68.26 Body mass index [BMI] 26.0-26.9, adult; R00.0 Tachycardia, unspecified; D47.3 Essential (hemorrhagic) thrombocythemia; Z77.22 Contact with and (suspected) exposure to environmental tobacco smoke (acute) (chronic); Z79.01 Long term (current) use of anticoagulants; Z92.3 Personal history of irradiation; E87.70 Fluid overload, unspecified; D64.9 Anemia, unspecified
CPT/HCPCS: 36415; 36600; 70030-TC; 71045; 83550; 83605; 83615; 83735; 84100; 84443; 84478; 85025; 85730; 86140; 87040; 87070; 87400; 93005; 93307; 93880; 94002; 94003; A4217; A4663; A9150; C1758; C9113; G0378; J0330; J0456; J0692; J0696; J1170; J1650; J2060; J2185; J2270; J2274; J2370; J2543; J3480; J3490; J3535; J3590; J7030; J7050; J7060; U0003-CS